=== PATIENT | female | born 1975 | race African-American/Black ===

== ENCOUNTER 2017-11-28 19:51 | Emergency (ER) | payer MEDICAID, OTHER ==
[~2017-11-28] VITALS: Ht 154.9 cm; Wt 75.0 kg
[~2017-11-28 19:51] MED LIST: BENZ100 PO; VENTAER INH
[2017-11-28 19:54] VITALS: BP 110/72; PULSE 78; RESP 16; TEMP 98.8; O2SAT 100
[2017-11-28] MEDS ORDERED: ONDANSETRON HCL 4 MG/2 ML VIAL IVP ONE (20:30)
[2017-11-28] MEDS ORDERED: SODIUM CHLORIDE 0.9% FLUSH 10 ML FLUSH IV FLUSH PRN (20:30)
[2017-11-28] MEDS ORDERED: MORPHINE SULFATE 4 MG/ML INJ IV PUSH ONE (20:30)
[2017-11-28 21:03] LABS: AUTOMATED NEUTROPHIL # 2.3 TH/MM3 (1.8-7.7); BASOPHIL # 0.1 TH/MM3 (0-0.2); EOSINOPHIL # 0.1 TH/MM3 (0-0.4); EOSINOPHIL % 2.6 % (0.0-4.0); HEMATOCRIT 34.5 % (35.0-46.0); HEMOGLOBIN 11.5 GM/DL (11.6-15.3); LYMPH % 41.9 % (9.0-44.0); LYMPHOCYTE # 2.2 TH/MM3 (1.0-4.8); MEAN CELL VOLUME 88.7 FL (80.0-100.0); MEAN CORPUSCULAR HEMOGLOBIN 29.5 PG (27.0-34.0); MEAN CORPUSCULAR HGB CONC 33.2 % (32.0-36.0); MEAN PLATELET VOLUME 7.6 FL (7.0-11.0); MONO % 10.6 % (0.0-8.0); MONOCYTE # 0.6 TH/MM3 (0-0.9); NEUT % 43.9 % (16.0-70.0); PLATELET COUNT 344 TH/MM3 (150-450); RED BLOOD COUNT 3.89 MIL/MM3 (4.00-5.30); RED CELL DISTRIBUTION WIDTH 14.2 % (11.6-17.2); WHITE BLOOD COUNT 5.2 TH/MM3 (4.0-11.0)
[2017-11-28 21:09] LABS: BILIRUBIN, URINE NEG (NEG); BLOOD, URINE SMALL (NEG); GLUCOSE,URINE NEG (NEG); KETONE, URINE NEG (NEG); MUCUS URINE FEW /lpf (OCC); NITRITE,URINE NEG (NEG); PH, URINE 6.5 (5.0-8.5); SQUAMOUS EPITHELIAL CELL URINE 1 /hpf (0-5); URINE COLOR YELLOW (YELLW/STRAW); URINE LEUKOCYTE ESTERASE SMALL (NEG)
[2017-11-28 21:16] LABS: ALBUMIN 3.1 GM/DL (3.4-5.0); AST (GOT) 11 U/L (15-37); BICARBONATE 27.1 MEQ/L (21.0-32.0); BLOOD UREA NITROGEN 9 MG/DL (7-18); CHLORIDE 104 MEQ/L (98-107); CREATININE 0.83 MG/DL (0.50-1.00); GAMMA GT 11 U/L (5-55); GLOMERULAR FILTRATION RATE 90 ML/MIN (>89); GLUCOSE,RANDOM 74 MG/DL (74-106); SODIUM (NA) 135 MEQ/L (136-145)
[2017-11-28 21:18] LABS: ALT (GPT) 14 U/L (10-53)
[2017-11-28 21:19] LABS: ALKALINE PHOSPHATASE 65 U/L (45-117); TOTAL BILIRUBIN ADULT 0.3 MG/DL (0.2-1.0); TOTAL PROTEIN 7.4 GM/DL (6.4-8.2)
[2017-11-28 21:21] LABS: INTERNATIONAL NORMALIZED RATIO 1.1 RATIO; PROTHROMBIN TIME - PATIENT 11.5 SEC (9.8-11.6)
--- NOTE | 2017-11-28 21:52 | PD ---
HPI Chief Complaint: Flank/Kidney Pain Time Seen by Provider: 20:12 Travel History International Travel<30 days: No Contact w/Intl Traveler<30days: No Traveled to known affect area: No History of Present Illness HPI Patient is a 42-year-old female presenting to the emergency department for evaluation of right flank and right upper quadrant abdominal pain. Patient states it started 1 week ago in her flank, over the last several days it has localized to her right upper quadrant. Alleviating factors include Tylenol with some relief of symptoms. There are no exacerbating factors including food intake. Septum onset was gradual. Patient denies any nausea, vomiting, fever, chills, change in bowel habits. Patient states her pain is an 8 out of 10 and states it's sore and shooting. PFSH Past Medical History GERD: Yes Hiatal Hernia: Yes Immunizations Current: Yes Tetanus Vaccination: < 5 Years Influenza Vaccination: No ?: Not LMP: 11/07/2017 : 3 Para: 2 : 1 Past Surgical History Section: Yes (X 1) Social History Alcohol Use: No Tobacco Use: No Substance Use: No Allergies-Medications (Allergen,Severity, Reaction): Coded Allergies: amoxicillin (Unverified Adverse Reaction, Severe, GI BLEED, 11/28/17) clavulanic acid (Unverified Adverse Reaction, Severe, GI BLEED, 11/28/17) Reported Meds & Prescriptions Reported Meds & Active Scripts Active Tessalon Perles (Benzonatate) 100 Mg Cap 200 Mg PO Q8HR PRN Ventolin Hfa 18 GM Inh (Albuterol Sulfate) 90 Mcg/Act Aer 2 Puff INH Q4-6H PRN Review of Systems Except as stated in HPI: all other systems reviewed are Neg General / Constitutional: No: Fever Cardiovascular: No: Chest Pain or Discomfort Respiratory: No: Shortness of Breath Gastrointestinal: Positive: Abdominal Pain, No: Nausea, Vomiting, Changes in Bowel Habits, Indigestion, Loss of Appetite Genitourinary: No: Frequency, Dysuria Physical Exam Narrative GENERAL: Well-developed, well-nourished, alert female. Appears uncomfortable, in no acute distress. SKIN: Warm and dry. HEAD: Atraumatic. Normocephalic. EYES: Pupils equal and round. No scleral icterus. No injection or drainage. ENT: No nasal bleeding or discharge. Mucous membranes pink and moist. NECK: Trachea midline. No JVD. CARDIOVASCULAR: Regular rate and rhythm. RESPIRATORY: No accessory muscle use. Clear to auscultation. Breath sounds equal bilaterally. GASTROINTESTINAL: Abdomen soft, tender to palpation in right upper quadrant, nondistended. Hepatic and splenic margins not palpable. Positive guarding, no rebound, positive bowel sounds. MUSCULOSKELETAL: Extremities without clubbing, cyanosis, or edema. No obvious deformities. NEUROLOGICAL: Awake and alert. No obvious cranial nerve deficits. Motor grossly within normal limits. Five out of 5 muscle strength in the arms and legs. Normal speech. PSYCHIATRIC: Appropriate mood and affect; insight and judgment normal. Data Data Last Documented VS Vital Signs Date Time Temp Pulse Resp B/P (MAP) Pulse Ox O2 Delivery O2 Flow Rate FiO2 11/28/17 19:54 98.8 78 16 110/72 (85) 100 Orders Orders Complete Blood Count With Diff (11/28/17 20:16) Comprehensive Metabolic Panel (11/28/17 20:16) Lipase (11/28/17 20:16) Prothrombin Time / Inr (Pt) (11/28/17 20:16) Act Partial Throm Time (Ptt) (11/28/17 20:16) Urinalysis - C+S If Indicated (11/28/17 20:16) Us Abdomen Gallbladder (11/28/17 ) Iv Access Insert/Monitor (11/28/17 20:16) Ecg Monitoring (11/28/17 20:16) Oximetry (11/28/17 20:16) NPO (11/28/17 20:16) Morphine Inj (Morphine Inj) (11/28/17 20:30) Ondansetron Inj (Zofran Inj) (11/28/17 20:30) Sodium Chloride 0.9% Flush (Ns Flush) (11/28/17 20:30) Gamma Gt (Ggt) (11/28/17 20:16) Urine Culture (11/28/17 20:40) Ciprofloxacin (Cipro) (11/28/17 23:15) Labs Laboratory Tests Test 11/28/17 20:40 White Blood Count 5.2 TH/MM3 Red Blood Count 3.89 MIL/MM3 Hemoglobin 11.5 GM/DL Hematocrit 34.5 % Mean Corpuscular Volume 88.7 FL Mean Corpuscular Hemoglobin 29.5 PG Mean Corpuscular Hemoglobin Concent 33.2 % Red Cell Distribution Width 14.2 % Platelet Count 344 TH/MM3 Mean Platelet Volume 7.6 FL Neutrophils (%) (Auto) 43.9 % Lymphocytes (%) (Auto) 41.9 % Monocytes (%) (Auto) 10.6 % Eosinophils (%) (Auto) 2.6 % Basophils (%) (Auto) 1.0 % Neutrophils # (Auto) 2.3 TH/MM3 Lymphocytes # (Auto) 2.2 TH/MM3 Monocytes # (Auto) 0.6 TH/MM3 Eosinophils # (Auto) 0.1 TH/MM3 Basophils # (Auto) 0.1 TH/MM3 CBC Comment DIFF FINAL Differential Comment Prothrombin Time 11.5 SEC Prothromb Time International Ratio 1.1 RATIO Activated Partial Thromboplast Time 24.2 SEC Urine Color YELLOW Urine Turbidity CLEAR Urine pH 6.5 Urine Specific [place] 1.033 Urine Protein 30 mg/dL Urine Glucose (UA) NEG mg/dL Urine Ketones NEG mg/dL Urine Occult Blood SMALL Urine Nitrite NEG Urine Bilirubin NEG Urine Urobilinogen 8.0 MG/DL Urine Leukocyte Esterase SMALL Urine RBC 6 /hpf Urine WBC 18 /hpf Urine Squamous Epithelial Cells 1 /hpf Urine Mucus FEW /lpf Microscopic Urinalysis Comment CULTURE INDICATED Blood Urea Nitrogen 9 MG/DL Creatinine 0.83 MG/DL Random Glucose 74 MG/DL Total Protein 7.4 GM/DL Albumin 3.1 GM/DL Calcium Level 8.0 MG/DL Alkaline Phosphatase 65 U/L Aspartate Amino Transf (AST/SGOT) 11 U/L Alanine Aminotransferase (ALT/SGPT) 14 U/L Gamma Glutamyl Transpeptidase 11 U/L Total Bilirubin 0.3 MG/DL Sodium Level 135 MEQ/L Potassium Level 3.3 MEQ/L Chloride Level 104 MEQ/L Carbon Dioxide Level 27.1 MEQ/L Anion Gap 4 MEQ/L Estimat Glomerular Filtration Rate 90 ML/MIN Lipase 221 U/L [facility] Medical Decision Making Medical Screen Exam Complete: Yes Emergency Medical Condition: Yes Interpretation(s) Laboratory Tests Test 11/28/17 20:40 White Blood Count 5.2 TH/MM3 Red Blood Count 3.89 MIL/MM3 Hemoglobin 11.5 GM/DL Hematocrit 34.5 % Mean Corpuscular Volume 88.7 FL Mean Corpuscular Hemoglobin 29.5 PG Mean Corpuscular Hemoglobin Concent 33.2 % Red Cell Distribution Width 14.2 % Platelet Count 344 TH/MM3 Mean Platelet Volume 7.6 FL Neutrophils (%) (Auto) 43.9 % Lymphocytes (%) (Auto) 41.9 % Monocytes (%) (Auto) 10.6 % Eosinophils (%) (Auto) 2.6 % Basophils (%) (Auto) 1.0 % Neutrophils # (Auto) 2.3 TH/MM3 Lymphocytes # (Auto) 2.2 TH/MM3 Monocytes # (Auto) 0.6 TH/MM3 Eosinophils # (Auto) 0.1 TH/MM3 Basophils # (Auto) 0.1 TH/MM3 CBC Comment DIFF FINAL Differential Comment Prothrombin Time 11.5 SEC Prothromb Time International Ratio 1.1 RATIO Activated Partial Thromboplast Time 24.2 SEC Urine Color YELLOW Urine Turbidity CLEAR Urine pH 6.5 Urine Specific [place] 1.033 Urine Protein 30 mg/dL Urine Glucose (UA) NEG mg/dL Urine Ketones NEG mg/dL Urine Occult Blood SMALL Urine Nitrite NEG Urine Bilirubin NEG Urine Urobilinogen 8.0 MG/DL Urine Leukocyte Esterase SMALL Urine RBC 6 /hpf Urine WBC 18 /hpf Urine Squamous Epithelial Cells 1 /hpf Urine Mucus FEW /lpf Microscopic Urinalysis Comment CULTURE INDICATED Blood Urea Nitrogen 9 MG/DL Creatinine 0.83 MG/DL Random Glucose 74 MG/DL Total Protein 7.4 GM/DL Albumin 3.1 GM/DL Calcium Level 8.0 MG/DL Alkaline Phosphatase 65 U/L Aspartate Amino Transf (AST/SGOT) 11 U/L Alanine Aminotransferase (ALT/SGPT) 14 U/L Gamma Glutamyl Transpeptidase 11 U/L Total Bilirubin 0.3 MG/DL Sodium Level 135 MEQ/L Potassium Level 3.3 MEQ/L Chloride Level 104 MEQ/L Carbon Dioxide Level 27.1 MEQ/L Anion Gap 4 MEQ/L Estimat Glomerular Filtration Rate 90 ML/MIN Lipase 221 U/L Laboratory Tests Test 11/28/17 20:40 White Blood Count 5.2 TH/MM3 Red Blood Count 3.89 MIL/MM3 Hemoglobin 11.5 GM/DL Hematocrit 34.5 % Mean Corpuscular Volume 88.7 FL Mean Corpuscular Hemoglobin 29.5 PG Mean Corpuscular Hemoglobin Concent 33.2 % Red Cell Distribution Width 14.2 % Platelet Count 344 TH/MM3 Mean Platelet Volume 7.6 FL Neutrophils (%) (Auto) 43.9 % Lymphocytes (%) (Auto) 41.9 % Monocytes (%) (Auto) 10.6 % Eosinophils (%) (Auto) 2.6 % Basophils (%) (Auto) 1.0 % Neutrophils # (Auto) 2.3 TH/MM3 Lymphocytes # (Auto) 2.2 TH/MM3 Monocytes # (Auto) 0.6 TH/MM3 Eosinophils # (Auto) 0.1 TH/MM3 Basophils # (Auto) 0.1 TH/MM3 CBC Comment DIFF FINAL Differential Comment Prothrombin Time 11.5 SEC Prothromb Time International Ratio 1.1 RATIO Activated Partial Thromboplast Time 24.2 SEC Urine Color YELLOW Urine Turbidity CLEAR Urine pH 6.5 Urine Specific [place] 1.033 Urine Protein 30 mg/dL Urine Glucose (UA) NEG mg/dL Urine Ketones NEG mg/dL Urine Occult Blood SMALL Urine Nitrite NEG Urine Bilirubin NEG Urine Urobilinogen 8.0 MG/DL Urine Leukocyte Esterase SMALL Urine RBC 6 /hpf Urine WBC 18 /hpf Urine Squamous Epithelial Cells 1 /hpf Urine Mucus FEW /lpf Microscopic Urinalysis Comment CULTURE INDICATED Blood Urea Nitrogen 9 MG/DL Creatinine 0.83 MG/DL Random Glucose 74 MG/DL Total Protein 7.4 GM/DL Albumin 3.1 GM/DL Calcium Level 8.0 MG/DL Alkaline Phosphatase 65 U/L Aspartate Amino Transf (AST/SGOT) 11 U/L Alanine Aminotransferase (ALT/SGPT) 14 U/L Gamma Glutamyl Transpeptidase 11 U/L Total Bilirubin 0.3 MG/DL Sodium Level 135 MEQ/L Potassium Level 3.3 MEQ/L Chloride Level 104 MEQ/L Carbon Dioxide Level 27.1 MEQ/L Anion Gap 4 MEQ/L Estimat Glomerular Filtration Rate 90 ML/MIN Lipase 221 U/L Vital Signs Date Time Temp Pulse Resp B/P (MAP) Pulse Ox O2 Delivery O2 Flow Rate FiO2 11/28/17 19:54 98.8 78 16 110/72 (85) 100 Differential Diagnosis Cholecystitis versus gastritis versus muscle strain versus UTI versus kidney stone versus other Narrative Course Patient is a 42-year-old female presenting for evaluation of right upper quadrant abdominal pain. Patient's vital signs are stable, labs and imaging ordered and pending. Ultrasound of the gallbladder shows no acute abnormality. CBC with no acute findings, lipase 221, 3 with a sodium 135, potassium 3.3, GGT 11, UA is consistent with a urinary tract infection. Pt's symptoms are likely related to beginning pyelonephritis. Patient will be given first dose of Cipro now. She'll be given additional prescription to complete full course of therapy at home. She is encouraged to increase oral fluid intake. She is encouraged follow-up with her primary doctor return to emergency department for any new or worsening symptoms. Patient verbalized understanding of these instructions. Patient is stable for discharge. Diagnosis Primary Impression: Pyelonephritis Referrals: Primary Care Physician Patient Instructions: Flank Pain (ED), General Instructions, Kidney Infection ( ED) Additional Instructions: Complete full course of antibiotics as prescribed Increase oral fluid intake Return to emergency department for any new or worsening symptoms Med/Other Pt SpecificInfo: Prescription(s) given Scripts Ciprofloxacin (Ciprofloxacin) 500 Mg Tab 500 MG PO BID for Infection for 5 Days, #10 TAB 0 Refills Prov: Geovanna Ford 11/28/17 Disposition: 01 DISCHARGE HOME Condition: Stable Geovanna Ford Nov 28, 2017 21:52
--- NOTE | 2017-11-28 23:00 | RADRPT ---
EXAM DATE/TIME: 11/28/2017 21:32 [facility] COMPARISON: No previous studies available for comparison. INDICATIONS : Right upper quadrant pain. MEDICAL HISTORY : Gastroesophageal reflux disease. . Hiatal hernia. SURGICAL HISTORY : section. ENCOUNTER: Initial ACUITY: 2 weeks PAIN SCORE: 5/10 LOCATION: Right upper quadrant MEASUREMENTS: LIVER: 14.4 cm length COMMON DUCT: 5 mm RIGHT KIDNEY: 9.4 x 5.1 x 4.3 cm FINDINGS: LIVER: Normal echotexture without focal lesion or ductal dilatation. COMMON DUCT: No intraluminal mass or stone visualized. GALLBLADDER: Contains no stones, demonstrates no wall thickening or pericholecystic fluid. PANCREAS: The visualized portions are within normal limits. RIGHT KIDNEY: No evidence of hydronephrosis, stone, or mass. CONCLUSION: Normal right upper quadrant ultrasound. Pablo Carey MD on November 28, 2017 at 22:53 Board Certified Radiologist. This report was verified electronically.
[2017-11-28] MEDS ORDERED: CIPR500T2 PO (23:08)
[2017-11-28] MEDS ORDERED: CIPROFLOXACIN 500 MG TAB PO ONE (23:15)
== END 2017-11-28 23:21 | disposition home or self-care (01) ==
LOC: NEPD 19:51
DX: N12 Tubulo-interstitial nephritis, not specified as acute or chronic (principal); K21.9 Gastro-esophageal reflux disease without esophagitis; Z88.0 Allergy status to penicillin; Z88.8 Allergy status to other drugs, medicaments and biological substances
CPT/HCPCS: 76705; 80053; 81001; 82977; 83690; 85025; 85610; 85730; 87086; 96374; 96375; 99284; J2270; J2405

== ENCOUNTER 2018-03-13 14:46 | Inpatient (IN) | payer MEDICAID ==
[~2018-03-13] VITALS: Ht 154.9 cm; Wt 81.0 kg
[~2018-03-13 14:46] MED LIST changes: +CIPR500T2 PO
[2018-03-13 14:55] VITALS: BP 123/83; PULSE 87; RESP 18; TEMP 98.9; O2SAT 100
[2018-03-13] MEDS ORDERED: SODIUM CHLOR 0.9% 1000 ML INJ 1,000 ML IV ONE (15:15)
[2018-03-13 16:25] VITALS: BP 110/75; PULSE 63; RESP 16; O2SAT 100
[2018-03-13 16:31] LABS: BASOPHIL % 0.9 % (0.0-2.0); EOSINOPHIL # 0.1 TH/MM3 (0-0.4); EOSINOPHIL % 3.3 % (0.0-4.0); HEMATOCRIT 38.1 % (35.0-46.0); HEMOGLOBIN 13.4 GM/DL (11.6-15.3); LYMPH % 41.1 % (9.0-44.0); LYMPHOCYTE # 1.8 TH/MM3 (1.0-4.8); MEAN CELL VOLUME 87.4 FL (80.0-100.0); MEAN CORPUSCULAR HEMOGLOBIN 30.7 PG (27.0-34.0); MEAN CORPUSCULAR HGB CONC 35.1 % (32.0-36.0); MEAN PLATELET VOLUME 8.4 FL (7.0-11.0); MONO % 9.1 % (0.0-8.0); MONOCYTE # 0.4 TH/MM3 (0-0.9); NEUT % 45.6 % (16.0-70.0); PLATELET COUNT 372 TH/MM3 (150-450); RED BLOOD COUNT 4.36 MIL/MM3 (4.00-5.30); RED CELL DISTRIBUTION WIDTH 14.8 % (11.6-17.2); WHITE BLOOD COUNT 4.4 TH/MM3 (4.0-11.0)
[2018-03-13 16:40] LABS: PROTHROMBIN TIME - PATIENT 10.6 SEC (9.8-11.6)
[2018-03-13 16:52] LABS: BILIRUBIN, URINE NEG (NEG); BLOOD, URINE SMALL (NEG); GLUCOSE,URINE NEG (NEG); KETONE, URINE NEG (NEG); MUCUS URINE FEW /lpf (OCC); NITRITE,URINE NEG (NEG); SQUAMOUS EPITHELIAL CELL URINE 6 /hpf (0-5); URINE COLOR YELLOW (YELLW/STRAW); URINE LEUKOCYTE ESTERASE NEG (NEG)
[2018-03-13 17:04] LABS: ALBUMIN 3.8 GM/DL (3.4-5.0); ALKALINE PHOSPHATASE 76 U/L (45-117); AST (GOT) 17 U/L (15-37); BLOOD UREA NITROGEN 8 MG/DL (7-18); CALCIUM 8.7 MG/DL (8.5-10.1); CREATININE 0.88 MG/DL (0.50-1.00); GLOMERULAR FILTRATION RATE 84 ML/MIN (>89); GLUCOSE,RANDOM 78 MG/DL (74-106); TOTAL PROTEIN 9.2 GM/DL (6.4-8.2)
[2018-03-13 17:05] LABS: ALT (GPT) 16 U/L (10-53); BICARBONATE 25.5 MEQ/L (21.0-32.0); CHLORIDE 106 MEQ/L (98-107); SODIUM (NA) 140 MEQ/L (136-145); TOTAL BILIRUBIN ADULT 0.4 MG/DL (0.2-1.0)
--- NOTE | 2018-03-13 17:16 | RADRPT ---
EXAM DATE/TIME: 03/13/2018 16:44 [facility] COMPARISON: CT BRAIN W/O CONTRAST, December 02, 2013, 1:30. INDICATIONS : Right hand numbness for two days. RADIATION DOSE: 56.35 CTDIvol (mGy) MEDICAL HISTORY : Gastroesophageal reflux disease. SURGICAL HISTORY : None. ENCOUNTER: Initial ACUITY: 1 day PAIN SCALE: 0/10 LOCATION: Bilateral head TECHNIQUE: Multiple contiguous axial images were obtained of the head. Using automated exposure control and adj ustment of the mA and/or kV according to patient size, radiation dose was kept as low as reasonably a chievable to obtain optimal diagnostic quality images. DICOM format image data is available electro nically for review and comparison. FINDINGS: CEREBRUM: 1.8 x 1.3 cm hypodensity in the right frontal high convexity subcortical white matter. The ventricles are normal for age. No evidence of midline shift, mass lesion, hemorrhage or acute infarction. No extra-axial fluid collections are seen. POSTERIOR FOSSA: The cerebellum and brainstem are intact. The 4th ventricle is midline. The cerebellopontine angle i s unremarkable. EXTRACRANIAL: The visualized portion of the orbits is intact. SKULL: The calvaria is intact. No evidence of skull fracture. CONCLUSION: 1. 1.8 x 1.3 cm hypodense region in the right frontal high convexity subcortical white matter without evidence for significant mass effect. Differential considerations include demyelinating process such as multiple sclerosis versus focal infarction or less likely mass. Nilton Dobbs MD on March 13, 2018 at 17:09 Board Certified Radiologist. This report was verified electronically.
--- NOTE | 2018-03-13 17:17 | RADRPT ---
EXAM DATE/TIME: 03/13/2018 16:44 [facility] COMPARISON: No previous studies available for comparison. INDICATIONS : Right hand numbness for two days. RADIATION DOSE: 17.34 CTDIvol (mGy) MEDICAL HISTORY : Gastroesophageal reflux disease. SURGICAL HISTORY : None. ENCOUNTER: Initial ACUITY: 1 day PAIN SCALE: 0/10 LOCATION: Bilateral neck TECHNIQUE: Volumetric scanning of the cervical spine was performed. Multiplanar reconstructions in the sagittal, coronal and oblique axial planes were performed. Using automated exposure control and adjustment o f the mA and/or kV according to patient size, radiation dose was kept as low as reasonably achievable to obtain optimal diagnostic quality images. DICOM format image data is available electronically f or review and comparison. FINDINGS: VERTEBRAE: Normal vertebral body height. ALIGNMENT: No evidence of subluxation. C2-C3: The bony spinal canal is normal in size. No evidence of disc bulge or herniation. The neural forami na are bilaterally patent. C3-C4: The bony spinal canal is normal in size. No evidence of disc bulge or herniation. The neural forami na are bilaterally patent. C4-C5: The bony spinal canal is normal in size. No evidence of disc bulge or herniation. The neural forami na are bilaterally patent. C5-C6: The bony spinal canal is normal in size. No evidence of disc bulge or herniation. The neural forami na are bilaterally patent. C6-C7: The bony spinal canal is normal in size. No evidence of disc bulge or herniation. The neural forami na are bilaterally patent. C7-T1: The bony spinal canal is normal in size. No evidence of disc bulge or herniation. The neural forami na are bilaterally patent. CONCLUSION: 1. Unremarkable CT examination of the cervical spine. Patent bony central canal and neural foramina. Nilton Dobbs MD on March 13, 2018 at 17:14 Board Certified Radiologist. This report was verified electronically.
--- NOTE | 2018-03-13 18:18 | PD ---
HPI Chief Complaint: Numbness/Tingling Time Seen by Provider: 15:06 Travel History International Travel<30 days: No Contact w/Intl Traveler<30days: No Traveled to known affect area: No History of Present Illness HPI Patient is a 42-year-old female who comes in complaining of paresthesias in her right arm and right leg. She says this started last night, but has gotten worse. He says it started in the tips of her fingers and then spread through her arm and then to her leg. She denies any weakness. She denies any headache or neck pain. She denies any injuries. She says this is never happened before. She has not taken anything for her symptoms. Severity is mild to moderate. PFSH Past Medical History GERD: Yes Hiatal Hernia: Yes Medical other: Yes (FIBROIDS) Immunizations Current: Yes Tetanus Vaccination: < 5 Years Influenza Vaccination: Yes ?: Not LMP: 01/25/18 : 3 Para: 2 : 1 Past Surgical History Section: Yes (X 1) Genitourinary Surgery: Yes () Social History Alcohol Use: No Tobacco Use: No Substance Use: No Allergies-Medications (Allergen,Severity, Reaction): Coded Allergies: amoxicillin (Unverified Adverse Reaction, Severe, GI BLEED, 03/13/18) clavulanic acid (Unverified Adverse Reaction, Severe, GI BLEED, 03/13/18) Reported Meds & Prescriptions Reported Meds & Active Scripts Active Ciprofloxacin (Ciprofloxacin HCl) 500 Mg Tab 500 Mg PO BID 5 Days Tessalon Perles (Benzonatate) 100 Mg Cap 200 Mg PO Q8HR PRN Ventolin Hfa 18 GM Inh (Albuterol Sulfate) 90 Mcg/Act Aer 2 Puff INH Q4-6H PRN Review of Systems Except as stated in HPI: all other systems reviewed are Neg General / Constitutional: No: Fever, Chills Eyes: No: Blurred Vision HENT: No: Headaches, Lightheadedness Cardiovascular: No: Chest Pain or Discomfort Respiratory: No: Shortness of Breath Gastrointestinal: No: Nausea, Vomiting Musculoskeletal: No: Pain Neurologic: Positive: Paresthesia Physical Exam Narrative GENERAL: Awake and alert, no acute distress. SKIN: Focused skin assessment warm/dry. No wounds or signs of infection. HEAD: Atraumatic. Normocephalic. EYES: Pupils equal and round and reactive. No scleral icterus. Extraocular movements intact. ENT: Mucous membranes pink and moist. NECK: Trachea midline. No JVD. CARDIOVASCULAR: Regular rate and rhythm. No murmur appreciated. RESPIRATORY: No accessory muscle use. Clear to auscultation. Breath sounds equal bilaterally. GASTROINTESTINAL: Abdomen soft, non-tender, nondistended. MUSCULOSKELETAL: No obvious deformities. No clubbing. No cyanosis. No edema. NEUROLOGICAL: Awake and alert. No obvious cranial nerve deficits. Motor grossly within normal limits. Normal speech. No evidence of decreased sensation. PSYCHIATRIC: Appropriate mood and affect; insight and judgment normal. Data Data Last Documented VS Vital Signs Date Time Temp Pulse Resp B/P (MAP) Pulse Ox O2 Delivery O2 Flow Rate FiO2 03/13/18 18:28 73 16 134/82 (99) 100 Room Air 03/13/18 14:[address] Brain W/O Iv Contrast(Rout) (03/13/18 ) Ct Cerv Spine W/O Contrast (03/13/18 ) Complete Blood Count With Diff (03/13/18 15:13) Comprehensive Metabolic Panel (03/13/18 15:13) Iv Access Insert/Monitor (03/13/18 15:13) Electrocardiogram (03/13/18 ) Act Partial Throm Time (Ptt) (03/13/18 15:13) Prothrombin Time / Inr (Pt) (03/13/18 15:13) Urinalysis - C+S If Indicated (03/13/18 15:13) Ed Urine Pregnancytest Poc (03/13/18 15:13) Sodium Chlor 0.9% 1000 Ml Inj (Ns 1000 M (03/13/18 15:15) Mri Brain W&W/O Contrast (03/13/18 ) Admit Order (Ed Use Only) (03/13/18 ) Labs Laboratory Tests Test 03/13/18 15:45 03/13/18 16:00 White Blood Count 4.4 TH/MM3 Red Blood Count 4.36 MIL/MM3 Hemoglobin 13.4 GM/DL Hematocrit 38.1 % Mean Corpuscular Volume 87.4 FL Mean Corpuscular Hemoglobin 30.7 PG Mean Corpuscular Hemoglobin Concent 35.1 % Red Cell Distribution Width 14.8 % Platelet Count 372 TH/MM3 Mean Platelet Volume 8.4 FL Neutrophils (%) (Auto) 45.6 % Lymphocytes (%) (Auto) 41.1 % Monocytes (%) (Auto) 9.1 % Eosinophils (%) (Auto) 3.3 % Basophils (%) (Auto) 0.9 % Neutrophils # (Auto) 2.0 TH/MM3 Lymphocytes # (Auto) 1.8 TH/MM3 Monocytes # (Auto) 0.4 TH/MM3 Eosinophils # (Auto) 0.1 TH/MM3 Basophils # (Auto) 0.0 TH/MM3 CBC Comment DIFF FINAL Differential Comment Prothrombin Time 10.6 SEC Prothromb Time International Ratio 1.0 RATIO Activated Partial Thromboplast Time 25.0 SEC Blood Urea Nitrogen 8 MG/DL Creatinine 0.88 MG/DL Random Glucose 78 MG/DL Total Protein 9.2 GM/DL Albumin 3.8 GM/DL Calcium Level 8.7 MG/DL Alkaline Phosphatase 76 U/L Aspartate Amino Transf (AST/SGOT) 17 U/L Alanine Aminotransferase (ALT/SGPT) 16 U/L Total Bilirubin 0.4 MG/DL Sodium Level 140 MEQ/L Potassium Level 3.6 MEQ/L Chloride Level 106 MEQ/L Carbon Dioxide Level 25.5 MEQ/L Anion Gap 9 MEQ/L Estimat Glomerular Filtration Rate 84 ML/MIN Urine Color YELLOW Urine Turbidity CLEAR Urine pH 6.0 Urine Specific [place] 1.020 Urine Protein NEG mg/dL Urine Glucose (UA) NEG mg/dL Urine Ketones NEG mg/dL Urine Occult Blood SMALL Urine Nitrite NEG Urine Bilirubin NEG Urine Urobilinogen 2.0 MG/DL Urine Leukocyte Esterase NEG Urine RBC 3 /hpf Urine WBC 6 /hpf Urine Squamous Epithelial Cells 6 /hpf Urine Mucus FEW /lpf Microscopic Urinalysis Comment CULT NOT INDICATED MDM Medical Decision Making Medical Screen Exam Complete: Yes Emergency Medical Condition: Yes Medical Record Reviewed: Yes Interpretation(s) ECG shows normal sinus rhythm at a rate of 65, no ST elevation or depression, normal intervals Differential Diagnosis Radiculopathy versus TIA versus stroke versus electrolyte abnormality Narrative Course Patient is a 42-year-old female who comes in complaining of paresthesias in her right arm and right leg. Exam shows no neurologic abnormalities, sensation is intact. IV established, labs sent. Labs show no acute abnormalities. CT head performed shows a hypodense lesion concerning for mass versus MS versus stroke. Last [address] 03/13/18 0000 Signed Impressions: Service Date/Time: Tuesday, March 13, 2018 16:44 - CONCLUSION: 1. 1.8 x 1.3 cm hypodense region in the right frontal high convexity subcortical white matter without evidence for significant mass effect. Differential considerations include demyelinating process such as multiple sclerosis versus focal infarction or less likely mass. Nilton Dobbs MD Cervical Spine CT 03/13/18 0000 Signed Impressions: Service Date/Time: Tuesday, March 13, 2018 16:44 - CONCLUSION: 1. Unremarkable CT examination of the cervical spine. Patent bony central canal and neural foramina. Nilton Dobbs MD I spoke with Dr. Alatorre of neurology who suggested admission with MRI of the brain to further characterize this lesion. He advised holding off on any antiplatelets in case she needs an LP. Patient admitted for further management. Diagnosis Primary Impression: Neurologic abnormality Admitting Information Admitting Physician Requests: Admit Victoria Castillo MD March 13, 2018 18:18
[2018-03-13 18:28] VITALS: BP 134/82; PULSE 73; RESP 16; O2SAT 100
--- NOTE | 2018-03-13 19:05 | HHI.HP ---
HPI Service [facility] Primary Care Physician No Primary Care Physician Admission Diagnosis intracranial lesion Diagnoses: (1) Brain lesion Diagnosis: Principal Travel History International Travel<30 Days: No Contact w/Intl Traveler <30 Da: No Traveled to Known Affected Are: No History of Present Illness This is a 38-year-old female with no significant PMH who presented to the ER with complaints of right arm and right leg numbness and tingling starting last night. States she noted numbness/tingling in her fingers of her right hand last night, today progressed to numbness/tingling of entire arm and RLE. No motor weakness, no slurred speech, no facial droop. Denies h/o similar symptoms. On arrival, BP 123/83, HR 87, O2 sat 100% on RA, Afebrile. CBC unremarkable. Chemistry unremarkable. INR 1.0. UA negative for UTI. CT Head with 1.8 x 1.3 cm hypodense region right frontal subcortical white matter, no mass-effect, possible MS versus infarct or mass. Dr. Alatorre consulted, plan for MRI w/ possible LP depending on results. Pt w/ no other complaints at this time. Review of Systems Except as stated in HPI: all other systems reviewed are Neg ROS: 14 point review of systems otherwise negative. Past Family Social History Past Medical History PMH: None Past Surgical History PAST SURGICAL HISTORY: Allergies: Coded Allergies: amoxicillin (Unverified Adverse Reaction, Severe, GI BLEED, 03/13/18) clavulanic acid (Unverified Adverse Reaction, Severe, GI BLEED, 03/13/18) Family History PAST FAMILY HISTORY: Reviewed. No h/o DM or CAD Social History PAST SOCIAL HISTORY: Negative for alcohol, tobacco or drugs. Physical Exam Vital Signs Vital Signs Date Time Temp Pulse Resp B/P (MAP) Pulse Ox O2 Delivery O2 Flow Rate FiO2 03/13/18 18:28 73 16 134/82 (99) 100 Room Air 03/13/18 16:25 63 16 110/75 (87) 100 Room Air 03/13/18 15:16 18 Room Air 03/13/18 14:55 98.9 87 18 123/83 96 100 Physical Exam PE: GENERAL: Pleasant young white female in no acute distress. HEENT: PERRLA, EOMI. No scleral icterus or conjunctival pallor. No lid lag or facial droop. CARDIOVASCULAR: Regular rate and rhythm. No obvious murmurs to auscultation. No chest tenderness to palpation. RESPIRATORY: No obvious rhonchi or wheezing. Clear to auscultation. Breath sounds equal bilaterally. GASTROINTESTINAL: Abdomen soft, non-tender, nondistended. BS normal. MUSCULOSKELETAL: Extremities without clubbing, cyanosis, or edema. No obvious deformities. NEUROLOGICAL: Awake, alert and oriented x4. RUE/RLE numbness/tingling, no motor weakness. Moving both upper and lower extremities spontaneously. Laboratory Laboratory Tests Test 03/13/18 15:45 03/13/18 16:00 White Blood Count 4.4 Red Blood Count 4.36 Hemoglobin 13.4 Hematocrit 38.1 Mean Corpuscular Volume 87.4 Mean Corpuscular Hemoglobin 30.7 Mean Corpuscular Hemoglobin Concent 35.1 Red Cell Distribution Width 14.8 Platelet Count 372 Mean Platelet Volume 8.4 Neutrophils (%) (Auto) 45.6 Lymphocytes (%) (Auto) 41.1 Monocytes (%) (Auto) 9.1 Eosinophils (%) (Auto) 3.3 Basophils (%) (Auto) 0.9 Neutrophils # (Auto) 2.0 Lymphocytes # (Auto) 1.8 Monocytes # (Auto) 0.4 Eosinophils # (Auto) 0.1 Basophils # (Auto) 0.0 CBC Comment DIFF FINAL Differential Comment Prothrombin Time 10.6 Prothromb Time International Ratio 1.0 Activated Partial Thromboplast Time 25.0 Blood Urea Nitrogen 8 Creatinine 0.88 Random Glucose 78 Total Protein 9.2 Albumin 3.8 Calcium Level 8.7 Alkaline Phosphatase 76 Aspartate Amino Transf (AST/SGOT) 17 Alanine Aminotransferase (ALT/SGPT) 16 Total Bilirubin 0.4 Sodium Level 140 Potassium Level 3.6 Chloride Level 106 Carbon Dioxide Level 25.5 Anion Gap 9 Estimat Glomerular Filtration Rate 84 Urine Color YELLOW Urine Turbidity CLEAR Urine pH 6.0 Urine Specific Freeborn 1.020 Urine Protein NEG Urine Glucose (UA) NEG Urine Ketones NEG Urine Occult Blood SMALL Urine Nitrite NEG Urine Bilirubin NEG Urine Urobilinogen 2.0 Urine Leukocyte Esterase NEG Urine RBC 3 Urine WBC 6 Urine Squamous Epithelial Cells 6 Urine Mucus FEW Microscopic Urinalysis Comment CULT NOT INDICATED Result Diagram: 03/13/18 1545 03/13/18 1545 Caprini VTE Risk Assessment Caprini VTE Risk Assessment: No/Low Risk (score <= 1) Caprini Risk Assessment Model Point Value = 1 Point Value = 2 Point Value = 3 Point Value = 5 Age 41-60 Minor surgery BMI > 25 kg/m2 Swollen legs Varicose veins or History of unexplained or recurrent spontaneous Oral contraceptives or hormone replacement Sepsis (< 1 month) Serious lung disease, including pneumonia (< 1 month) Abnormal pulmonary function Acute myocardial infarction Congestive heart failure (< 1 month) History of inflammatory bowel disease Medical patient at bed rest Age 61-74 Arthroscopic surgery Major open surgery (> 45 min) Laparoscopic surgery (> 45 min) Malignancy Confined to bed (> 72 hours) Immobilizing plaster cast Central venous access Age >= 75 History of VTE Family history of VTE Factor V Leiden Prothrombin [id number] Lupus anticoagulant Anticardiolipin antibodies Elevated serum homocysteine Heparin-induced thrombocytopenia Other congenital or acquired thrombophilia Stroke (< 1 month) Elective arthroplasty Hip, pelvis, or leg fracture Acute spinal cord injury (< 1 month) Prophylaxis Regimen Total Risk Factor Score Risk Level Prophylaxis Regimen 0-1 Low Early ambulation 2 Moderate Order ONE of the following: *Sequential Compression Device (SCD) *Heparin 5000 units SQ BID 3-4 Higher Order ONE of the following medications: *Heparin 5000 units SQ TID *Enoxaparin/Lovenox 40 mg SQ daily (WT < 150 kg, CrCl > 30 mL/min) *Enoxaparin/Lovenox 30 mg SQ daily (WT < 150 kg, CrCl > 10-29 mL/min) *Enoxaparin/Lovenox 30 mg SQ BID (WT < 150 kg, CrCl > 30 mL/min) AND/OR *Sequential Compression Device (SCD) 5 or more Highest Order ONE of the following medications: *Heparin 5000 units SQ TID (Preferred with Epidurals) *Enoxaparin/Lovenox 40 mg SQ daily (WT < 150 kg, CrCl > 30 mL/min) *Enoxaparin/Lovenox 30 mg SQ daily (WT < 150 kg, CrCl > 10-29 mL/min) *Enoxaparin/Lovenox 30 mg SQ BID (WT < 150 kg, CrCl > 30 mL/min) AND *Sequential Compression Device (SCD) Assessment and Plan Problem List: (1) Brain lesion ICD Code: G93.9 - Disorder of brain, unspecified Assessment and Plan A/P: 1. Brain Lesion: acute onset of RUE/RLE numbness/tingling x1 day, no slurred speech, weakness or facial droop. CT Head w/ 1.8 x 1.3 cm right frontal subcortical lesion, possibly MS versus stroke versus mass, images reviewed by me. Dr. Alatorre consulted, recommendation for MRI Brain to further evaluated, currently pending. Hold ASA/Heparin for possible LP depending on MRI results. Neuro Checks. PT for eval/tx. 2. DVT Prophylaxis: SCD/Teds 3. Social work for d/c planning as needed. 4. Case discussed w/ ER physician at length, labs/records/imaging reviewed by me. Physician Certification 2 Midnight Certification Type: Admission for Inpatient Services Order for Inpatient Services The services are ordered in accordance with Medicare regulations or non- Medicare payer requirements, as applicable. In the case of services not specified as inpatient-only, they are appropriately provided as inpatient services in accordance with the 2-midnight benchmark. Estimated LOS (days): 2 days is the estimated time the patient will need to remain in the hospital, assuming treatment plan goals are met and no additional complications. Post-Hospital Plan: Not yet determined Kristal Juarez MD March 13, 2018 19:05
[2018-03-13] MEDS ORDERED: LACTULOSE SYRUP 20 GM/30 ML CUP PO PRN (19:15)
[2018-03-13] MEDS ORDERED: SENNOSIDES 8.6 MG TAB PO PRN (19:15)
[2018-03-13] MEDS ORDERED: ACETAMINOPHEN 325 MG TAB PO PRN (19:15)
[2018-03-13] MEDS ORDERED: SODIUM CHLORIDE 0.9% FLUSH 10 ML FLUSH IV FLUSH PRN (19:15)
[2018-03-13] MEDS ORDERED: BISACODYL 10 MG SUPP RECTAL PRN (19:15)
[2018-03-13] MEDS ORDERED: MAGNESIUM HYDROXIDE SUSP 30 ML CUP PO PRN (19:15)
[2018-03-13] MEDS ORDERED: GADODIAMIDE PF 287 MG/ML 5 ML VIAL (for RAD MRI) IVCONTRAST ONE (20:02)
--- NOTE | 2018-03-13 20:45 | RADRPT ---
EXAM DATE/TIME: 03/13/2018 19:49 [facility] COMPARISON: No previous studies available for comparison. INDICATIONS : Right sided weakness. Abnormal CT. CONTRAST: 14 cc Omniscan (gadodiamide) IV MEDICAL HISTORY : None. SURGICAL HISTORY : section. ENCOUNTER: Initial ACUITY: 1 day PAIN SCORE: 0/10 LOCATION: cranial TECHNIQUE: Multiplanar, multisequence MRI of the brain was performed both prior to and following the administrat ion of paramagnetic contrast. FINDINGS: CEREBRUM: There is a 1.4 cm peripherally enhancing mass in the subcortical right parietal high convexities with associated mild surrounding vasogenic edema. Second more subtle inferior Satellite lesion with enhan cement measuring 7 mm and associated edema is noted in the right posterior periventricular white manda er. The dominant mass demonstrates restricted diffusion peripherally. The smaller lesion does not dem onstrate diffusion abnormality. The ventricles are normal for age. No evidence of midline shift, mas s lesion, hemorrhage or acute infarction. No extraaxial fluid collections are seen. The pituitary g land and suprasellar cistern are normal in configuration. WHITE MATTER: No significant signal abnormalities are seen in the white matter. POSTERIOR FOSSA: The cerebellum and brainstem are intact. The 4th ventricle is midline. The cerebellopontine angle is unremarkable. The cerebellar tonsils are normal in position. DIFFUSION IMAGING: No additional focal areas of restricted diffusion are seen. No evidence of acute infarction. EXTRACRANIAL: The visualized portions of the orbits and paranasal sinuses are unremarkable. POST-CONTRAST: No additional abnormal areas of parenchymal or dural enhancement. No evidence of blood-brain barrier breakdown. CONCLUSION: 1. Abnormality on CT corresponds to a 1.4 cm peripherally enhancing mass in the subcortical biparieta l high convexities with associated surrounding vasogenic edema and second more subtle inferior Satell ite lesion measuring 7 mm. Differential considerations include tumefactive MS versus primary or metas tatic malignancy. Clinical correlation is recommended. MR spectroscopy may be performed if there is c ontinued clinical uncertainty. Nilton Dobbs MD on March 13, 2018 at 20:37 Board Certified Radiologist. This report was verified electronically.
[2018-03-13 21:00] VITALS: BP 124/75; PULSE 64; RESP 18; TEMP 98; O2SAT 99
[2018-03-13] MEDS: DOCUSATE SODIUM 50 MG/SENNA 8.6 MG TAB PO SCH (21:00)
--- NOTE | 2018-03-13 22:46 | EKG ---
Date Performed: 03/13/2018 Time Performed: 16:00:28 PTAGE: 42 years EKG: Sinus rhythm NORMAL ECG PREVIOUS TRACING : 08/13/2016 22.26 No significant change from previous tracing noted. DOCTOR: Ahmet Salazar Interpretating Date/Time 03/13/2018 22:44:28
[2018-03-13] MEDS: SODIUM CHLOR 0.9% 1000 ML INJ 1,000 ML IV SCH (23:09)
[2018-03-13] MEDS: SODIUM CHLORIDE 0.9% FLUSH 10 ML FLUSH IV FLUSH SCH (23:10)
[2018-03-14] VITALS (8 sets, daily range): BP systolic 97–128; BP diastolic 53–77; PULSE 61–77; RESP 18–20; TEMP 97.5–98.2; O2SAT 98–100
[2018-03-14] MEDS: ACETAMINOPHEN/HYDROcodone 325 MG/5 MG TAB PO PRN ×3 (01:02→21:05)
[2018-03-14] MEDS: DOCUSATE SODIUM 50 MG/SENNA 8.6 MG TAB PO SCH ×2 (08:03→21:05)
[2018-03-14] MEDS: SODIUM CHLORIDE 0.9% FLUSH 10 ML FLUSH IV FLUSH SCH ×2 (08:03→21:00)
[2018-03-14 08:36] LABS: AUTOMATED NEUTROPHIL # 1.8 TH/MM3 (1.8-7.7); BASOPHIL # 0.1 TH/MM3 (0-0.2); EOSINOPHIL # 0.2 TH/MM3 (0-0.4); HEMATOCRIT 32.7 % (35.0-46.0); HEMOGLOBIN 10.8 GM/DL (11.6-15.3); LYMPH % 43.2 % (9.0-44.0); LYMPHOCYTE # 1.7 TH/MM3 (1.0-4.8); MEAN CELL VOLUME 87.8 FL (80.0-100.0); MEAN CORPUSCULAR HEMOGLOBIN 28.9 PG (27.0-34.0); MEAN CORPUSCULAR HGB CONC 32.9 % (32.0-36.0); MEAN PLATELET VOLUME 8.3 FL (7.0-11.0); MONO % 5.1 % (0.0-8.0); MONOCYTE # 0.2 TH/MM3 (0-0.9); NEUT % 45.7 % (16.0-70.0); PLATELET COUNT 334 TH/MM3 (150-450); RED BLOOD COUNT 3.73 MIL/MM3 (4.00-5.30); RED CELL DISTRIBUTION WIDTH 14.5 % (11.6-17.2)
[2018-03-14 08:57] LABS: ALBUMIN 2.8 GM/DL (3.4-5.0); ALKALINE PHOSPHATASE 55 U/L (45-117); ALT (GPT) 12 U/L (10-53); AST (GOT) 14 U/L (15-37); BICARBONATE 23.2 MEQ/L (21.0-32.0); BLOOD UREA NITROGEN 6 MG/DL (7-18); CALCIUM 7.7 MG/DL (8.5-10.1); CHLORIDE 111 MEQ/L (98-107); CREATININE 0.62 MG/DL (0.50-1.00); GLOMERULAR FILTRATION RATE 127 ML/MIN (>89); GLUCOSE,RANDOM 86 MG/DL (74-106); SODIUM (NA) 141 MEQ/L (136-145); TOTAL BILIRUBIN ADULT 0.3 MG/DL (0.2-1.0); TOTAL PROTEIN 6.6 GM/DL (6.4-8.2)
[2018-03-14] MEDS: SODIUM CHLOR 0.9% 1000 ML INJ 1,000 ML IV SCH ×2 (10:07→15:01)
[2018-03-14] MEDS ORDERED: DIATRIZOATE MEGLUM/DIATRIZOATE SOD 9 ML CUP PO ONE (12:15)
--- NOTE | 2018-03-14 12:23 | HHI.PR ---
Subjective Remarks Reports that she is having still some numbness in the right upper and lower extremities. No weakness is able to still ambulate. No headaches no visual changes no difficulty with swallowing Objective Vitals Vital Signs Date Time Temp Pulse Resp B/P (MAP) Pulse Ox O2 Delivery O2 Flow Rate FiO2 03/14/18 12:00 97.8 77 20 119/71 (87) 100 03/14/18 08:05 63 03/14/18 08:00 98.2 62 20 105/71 (82) 99 03/14/18 04:00 97.9 61 18 97/59 (72) 98 03/14/18 00:00 97.9 67 19 106/56 (73) 98 03/13/18 21:00 98.0 64 18 124/75 (91) 99 03/13/18 20:47 03/13/18 18:28 73 16 134/82 (99) 100 Room Air 03/13/18 16:25 63 16 110/75 (87) 100 Room Air 03/13/18 15:16 18 Room Air 03/13/18 14:55 98.9 87 18 123/83 (96) 100 I/O 03/13/18 03/13/18 03/13/18 03/14/18 03/14/18 03/14/18 07:00 15:00 23:00 07:00 15:00 23:00 Intake Total 1000 ml Balance 1000 ml Intake IV Total 1000 ml Result Diagram: 03/14/1872503/14/18 07 Objective Remarks GENERAL: This is a well-nourished, well-developed patient, in no apparent distress. CARDIOVASCULAR: Regular rate and rhythm RESPIRATORY: Clear to auscultation. Breath sounds equal bilaterally. No wheezes , rales, or rhonchi. GASTROINTESTINAL: Abdomen soft, non-tender, nondistended. Normal active bowel sounds MUSCULOSKELETAL: Extremities without clubbing, cyanosis, or edema. NEURO: Alert & Oriented x4 to person, place, time, situation. Moves all ext x4 A/P Problem List: (1) Brain lesion ICD Code: G93.9 - Disorder of brain, unspecified Status: Acute Assessment and Plan 1. Brain Lesion: per history acute onset of RUE/RLE numbness/tingling x1 day, no slurred speech, weakness or facial droop. CT Head w/ 1.8 x 1.3 cm right frontal subcortical lesion, possibly MS versus stroke versus mass. appreciate neurology recommendations for further evaluation. Dr. Zamarripa has order MRI of the cervical, thoracic and L-spine, further lab work currently pending along a with a neurosurgical evaluation for biopsy of the lesion. Hold ASA/Heparin for possible LP depending on MRI results. Neuro Checks are stable PT for evaluation and treatment 2. DVT Prophylaxis: SCD/Teds Discharge Planning home when stable Cecy Orourke MD March 14, 2018 12:23
--- NOTE | 2018-03-14 12:34 | MB ---
cc: Lloyd Zamarripa MD DATE: 03/14/2018 REASON FOR CONSULTATION: A 42-year-old left-handed woman with really no past medical history. She has occasional headaches on and off. Wednesday, which was 2 days ago, she noticed some tingling in her right fingers, which seemed to slowly traveled up her right arm and down her right leg and on the right side of her neck, not onto her face, a little bit of blurriness in the right vision. She came into the ER, which showed a hypodensity in the right frontal head region, which would be the side opposite we would think and then an MRI has shown a round almost cystic-appearing lesion with some ring enhancement and some edema in the white matter around that and also a smaller more diffusely enhancing round lesion, right next to that. Nothing to suggest MS on the MRI. There is a small white matter change on the left side of the brain. She denies any recent travel or communication with anybody who has traveled outside the [facility]. She has not gone to [place] or the [facility] or anywhere outside the [facility]. She has occasional headaches, but nothing new. No fevers or other illness or diarrhea. SOCIAL HISTORY: She is not a smoker or a drinker. No drugs. Lives by herself. FAMILY HISTORY: Positive for cancer in father. Negative for seizure or stroke. REVIEW OF SYSTEMS: Denies any fever. Denies any hypertension, diabetes, hypercholesterolemia, SD, CABG, cardiac arrhythmia, renal, hepatic, pulmonary disease, thyroid disease, lupus, ulcer, cancer, seizure or stroke. MEDICATIONS: None at home. PHYSICAL EXAMINATION: VITAL SIGNS: Afebrile, 62, 20, 105/71. NECK: There were no carotid bruits. HEART: Regular rhythm. I did not detect a murmur. NEUROLOGIC: Pupils are equal. Visual segundo are full. Extraocular movements intact without nystagmus. She is a little bit blurry in her vision right eye compared to the left, but really does not see well to a distance with either eye because she does not have her glasses with her. Face is symmetric with normal sensation. Tongue was midline. There is no drift. She had normal strength in her upper and lower extremities bilaterally. DTRs are 1+ throughout. Toes are downgoing bilaterally. There is no ankle clonus. Tone is normal throughout. Pinprick is intact throughout. She is not ataxic on [id number]. Speech is fluent. She is not aphasic. She tells me her gait has been fine. LABORATORY DATA: CBC is normal. Urine drug screen negative. UA negative. Basic metabolic profile, LFTs normal, albumin was normal. Coags normal. MRI is noted. Cervical spine CT was read as normal. IMPRESSION: Unusual that her symptoms are on the right side of her body would correspond more to the left side of her brain or she could have a spinal cord lesion as the face was not involved with the tingling, so we are going to go ahead and check an MRI of the cervical and thoracic spine. The abnormalities in the right brain, I am not sure exactly what they are. They could be a small abscess, a glioma could be considered, a cyst-like structure such as cysticercosis could be considered. We will have neurosurgery see her. Atypical MS could be considered, but certainly does not look classic for MS. Although similar findings can be seen in tumefactive MS. We will check some blood work on her also. I will be following her with you in the hospital, although clinically she looks fine at this time. I also will check a CT of her chest and abdomen. An unusual appearing met could also be considered such as ovarian or other type of cancer type met. MD ARANZA Khan/WALESKA , 11:30 AM , 12:34 PM
[2018-03-14 12:50] LABS: C-REACTIVE PROTEIN LESS THAN 0.29 MG/DL (0.00-0.30)
[2018-03-14 13:15] LABS: FREE T4 0.96 NG/DL (0.76-1.46)
[2018-03-14] MEDS ORDERED: GADODIAMIDE PF 287 MG/ML 10 ML VIAL (for RAD MRI) IV PUSH ONE (15:10)
--- NOTE | 2018-03-14 16:48 | RADRPT ---
EXAM DATE/TIME: 03/14/2018 13:20 [facility] COMPARISON: No previous studies available for comparison. INDICATIONS : Mulitple sclerosis. CONTRAST: 13 cc Omniscan (gadodiamide) IV MEDICAL HISTORY : None. SURGICAL HISTORY : section. ENCOUNTER: Initial ACUITY: 1 day PAIN SCORE: 2/10 LOCATION: Right mid back TECHNIQUE: Multiplanar multisequence MRI of the thoracic spine was performed. FINDINGS: VERTEBRA: Normal vertebral body height. Homogeneous marrow signal. ALIGNMENT: Normal. CORD: Faint increased T2 and inversion recovery signal intensity posterior to the T4-5 disc interspace and T7 vertebral body. POST CONTRAST: No abnormal areas of contrast enhancement seen. T1-T2: Normal. T2-T3: The thecal sac has a normal diameter. No evidence of disc bulge or protrusion. T3-T4: The thecal sac has a normal diameter. No evidence of disc bulge or protrusion. T4-T5: The thecal sac has a normal diameter. No evidence of disc bulge or protrusion. T5-T6: The thecal sac has a normal diameter. No evidence of disc bulge or protrusion. T6-T7: The thecal sac has a normal diameter. No evidence of disc bulge or protrusion. T7-T8: The thecal sac has a normal diameter. No evidence of disc bulge or protrusion. T8-T9: The thecal sac has a normal diameter. No evidence of disc bulge or protrusion. T9-T10: The thecal sac has a normal diameter. No evidence of disc bulge or protrusion. T10-T11: The thecal sac has a normal diameter. No evidence of disc bulge or protrusion. T11-T12: The thecal sac has a normal diameter. No evidence of disc bulge or protrusion. T12-L1: The thecal sac has a normal diameter. No evidence of disc bulge or protrusion. CONCLUSION: 1. Faint increased T2 and inversion recovery signal posterior to the T4-5 disc interspace and T7 vert ebral bodies possibly representing old demyelinating plaques. 2. Otherwise, no active disease. No abnormal enhancement. Spinal canal is patent throughout Duong Cope MD on March 14, 2018 at 16:41 Board Certified Radiologist. This report was verified electronically.
--- NOTE | 2018-03-14 16:54 | RADRPT ---
EXAM DATE/TIME: 03/14/2018 13:20 [facility] COMPARISON: No previous studies available for comparison. INDICATIONS : Mulitple sclerosis. CONTRAST: 13 cc Omniscan (gadodiamide) IV MEDICAL HISTORY : None. SURGICAL HISTORY : section. ENCOUNTER: Initial ACUITY: 1 day PAIN SCORE: 2/10 LOCATION: Right neck region. TECHNIQUE: Multiplanar, multisequence MRI examination of the cervical spine was performed. FINDINGS: VERTEBRAE: Normal vertebral body height. Homogeneous marrow signal. ALIGNMENT: No evidence of subluxation. CORD: Increased T2 and inversion recovery signal posterior to the C4-5 disc interspace. POST FOSSA: The cerebellar tonsils are normal in position. POST-CONTRAST: Area of abnormal T2 signal posterior to the C4-5 disc interspace does show some enhancement following gadolinium administration. C2-C3: The thecal sac has a normal configuration. There is no evidence of disc herniation or spinal canal stenosis. The neural foramina are patent bilaterally. C3-C4: Faint area of increased gradient echo and T2 signal in intensity posteriorly in the right side of the cord. No abnormal enhancement. Spinal canal and neural foramina are patent. C4-C5: Central area of increased T2 and gradient echo signal centrally in the cord at this level which does show some enhancement. Spinal canal and neural foramina are patent. C5-C6: The thecal sac has a normal configuration. There is no evidence of disc herniation or spinal canal s tenosis. The neural foramina are patent bilaterally. C6-C7: The thecal sac has a normal configuration. There is no evidence of disc herniation or spinal canal s tenosis. The neural foramina are patent bilaterally. C7-T1: The thecal sac has a normal configuration. There is no evidence of disc herniation or spinal canal s tenosis. The neural foramina are patent bilaterally. CONCLUSION: 1. Old demyelinating plaque posteriorly in the right side of the cord at C3-4. 2. Active demyelinating plaque centrally in the cord at C4-5. 3. Spinal canal and neural foramina are patent throughout without cord or nerve root compromise Duong Cope MD on March 14, 2018 at 16:47 Board Certified Radiologist. This report was verified electronically.
--- NOTE | 2018-03-14 16:54 | RADRPT ---
EXAM DATE/TIME: 03/14/2018 13:20 [facility] COMPARISON: No previous studies available for comparison. INDICATIONS : Radiculopathy. MEDICAL HISTORY : None. SURGICAL HISTORY : section. ENCOUNTER: Initial ACUITY: 2 day PAIN SCORE: 0/10 LOCATION: lspine TECHNIQUE: Multiplanar multisequence MRI of the lumbar spine was performed without contrast. FINDINGS: The most caudal appearing lumbar vertebra is numbered as L5. VERTEBRAE: Homogeneous signal. Normal alignment. CONUS: Normal level and configuration. T12-L1: The thecal sac has a normal diameter. No evidence of disc bulge or protrusion. The neural foramina are patent bilaterally. L1-L2: The thecal sac has a normal diameter. No evidence of disc bulge or protrusion. The neural foramina are patent bilaterally. L2-L3: The thecal sac has a normal diameter. No evidence of disc bulge or protrusion. The neural foramina are patent bilaterally. L3-L4: The thecal sac has a normal diameter. No evidence of disc bulge or protrusion. The neural foramina are patent bilaterally. L4-L5: The thecal sac has a normal diameter. No evidence of disc bulge or protrusion. The neural foramina are patent bilaterally. L5-S1: The thecal sac has a normal diameter. No evidence of disc bulge or protrusion. The neural foramina are patent bilaterally. CONCLUSION: Negative exam. Duong Cope MD on March 14, 2018 at 16:52 Board Certified Radiologist. This report was verified electronically.
[2018-03-14] MEDS ORDERED: IOHEXOL 350 MG/ML 10 ML VIAL (for RAD DIAG) IVCONTRAST ONE (17:16)
--- NOTE | 2018-03-14 17:18 | RADRPT ---
EXAM DATE/TIME: 03/14/2018 16:52 [facility] COMPARISON: No previous studies available for comparison. INDICATIONS : Evaluate for mass. IV CONTRAST: 95 cc Omnipaque 350 (iohexol) IV RADIATION DOSE: 5.46 CTDIvol (mGy) ; Combined studies - Thorax/Abdomen/Pelvis MEDICAL HISTORY : Hernia, hiatal. Gastroesophageal reflux disease. Intracranial lesion. SURGICAL HISTORY : section. ENCOUNTER: Initial ACUITY: 1 day PAIN SCALE: 0/10 LOCATION: chest TECHNIQUE: Volumetric scanning of the chest was performed. Using automated exposure control and adjustment of t he mA and/or kV according to patient size, radiation dose was kept as low as reasonably achievable to obtain optimal diagnostic quality images. DICOM format image data is available electronically for review and comparison. Follow-up recommendations for detected pulmonary nodules are based at a minimum on nodule size and pa tient risk factors according to Fleischner Society Guidelines. FINDINGS: LUNGS: There is no consolidation or pneumothorax. No concerning pulmonary nodule is visualized. PLEURA: There is no pleural thickening or pleural effusion. MEDIASTINUM: The heart and great vessels demonstrate no acute abnormality. There is no mediastinal or hilar lymph adenopathy. AXILLAE: Within normal limits. No lymphadenopathy. SKELETAL: Within normal limits for patient age. MISCELLANEOUS: The visualized upper abdominal organs demonstrate no acute abnormality. CONCLUSION: No acute findings in the chest Pablo Johnson MD on March 14, 2018 at 17:14 Board Certified Radiologist. This report was verified electronically.
--- NOTE | 2018-03-14 17:22 | RADRPT ---
EXAM DATE/TIME: 03/14/2018 16:52 [place] COMPARISON: No previous studies available for comparison. INDICATIONS : Evaluate for mass. IV CONTRAST: 95 cc Omnipaque 350 (iohexol) IV ORAL CONTRAST: Prescribed oral contrast ingested. RADIATION DOSE: 5.46 CTDIvol (mGy) ; Combined studies - Thorax/Abdomen/Pelvis MEDICAL HISTORY : Hernia, hiatal. Gastroesophageal reflux disease. Intracranial lesion. SURGICAL HISTORY : section. ENCOUNTER: Initial ACUITY: 1 day PAIN SCALE: 0/10 LOCATION: Bilateral Abdomen TECHNIQUE: Volumetric scanning of the abdomen and pelvis was performed. Using automated exposure control and ad justment of the mA and/or kV according to patient size, radiation dose was kept as low as reasonably achievable to obtain optimal diagnostic quality images. DICOM format image data is available electro nically for review and comparison. FINDINGS: LOWER LUNGS: The visualized lower lungs are clear. LIVER: Homogeneous density without lesion. There is no dilation of the biliary tree. No calcified gallston es. SPLEEN: Normal size without lesion. PANCREAS: Within normal limits. KIDNEYS: Normal in size and shape. There is no mass, stone or hydronephrosis. ADRENAL GLANDS: Within normal limits. VASCULAR: There is no aortic aneurysm. BOWEL/MESENTERY: The stomach, small bowel, and colon demonstrate no acute abnormality. There is no free intraperitone al air or fluid. ABDOMINAL WALL: Within normal limits. RETROPERITONEUM: There is no lymphadenopathy. BLADDER: No wall thickening or mass. REPRODUCTIVE: Within normal limits. INGUINAL: Shotty inguinal nodes. MUSCULOSKELETAL: Within normal limits for patient age. CONCLUSION: No acute CT findings in the abdomen or pelvis. Pablo Johnson MD on March 14, 2018 at 17:18 Board Certified Radiologist. This report was verified electronically.
[2018-03-15] VITALS (9 sets, daily range): BP systolic 110–137; BP diastolic 64–78; PULSE 59–72; RESP 18–19; TEMP 97.6–98.3; O2SAT 100
[2018-03-15] MEDS: SODIUM CHLOR 0.9% 1000 ML INJ 1,000 ML IV SCH ×3 (01:12→21:35)
--- NOTE | 2018-03-15 07:45 | HHI.PR ---
Objective Vital Signs Date Time Temp Pulse Resp B/P (MAP) Pulse Ox O2 Delivery O2 Flow Rate FiO2 03/15/18 04:00 97.6 67 18 116/65 (82) 100 03/15/18 04:00 62 03/15/18 00:00 59 03/15/18 00:00 97.9 68 18 118/64 (82) 100 03/14/18 20:00 97.5 62 18 97/53 (68) 100 03/14/18 20:00 68 03/14/18 16:00 97.9 72 20 128/77 (94) 100 03/14/18 13:38 77 03/14/18 12:00 97.8 77 20 119/71 (87) 100 03/14/18 08:05 63 03/14/18 08:00 98.2 62 20 105/71 (82) 99 I/O 03/14/18 03/14/18 03/14/18 03/15/18 03/15/18 03/15/18 07:00 15:00 23:00 07:00 15:00 23:00 Intake Total 980 ml 1000 ml Balance 980 ml 1000 ml Intake IV Total 980 ml 1000 ml # Voids 3 4 # Bowel Movements 1 Result Diagram: 03/14/18 0703/14/18 07 Objective Remarks awake alert nl speech gait up and walking well Assessment and Plan Assessment and Plan imp lab neg no new co mri c spine cord at c 5 enhances and may have thoracic spot also ct abd and chest neg id consulted could be atypical ms if nusu oks we could do LP later today but would need their clearance first for it and opinion let me know what they come up with today so we can move [place] ahead Lloyd Zamarripa MD March 15, 2018 07:45
[2018-03-15] MEDS: DOCUSATE SODIUM 50 MG/SENNA 8.6 MG TAB PO SCH ×2 (08:06→21:00)
[2018-03-15] MEDS: SODIUM CHLORIDE 0.9% FLUSH 10 ML FLUSH IV FLUSH SCH ×2 (08:07→21:33)
--- NOTE | 2018-03-15 11:11 | HHI.PR ---
Subjective Remarks Patient is complaining bilateral fingertips numbness no significant weakness. No headaches or visual changes no difficulty swallowing, no difficulty with hearing. Objective Vitals Vital Signs Date Time Temp Pulse Resp B/P (MAP) Pulse Ox O2 Delivery O2 Flow Rate FiO2 03/15/18 09:42 69 03/15/18 08:00 98.3 65 18 110/71 (84) 100 03/15/18 04:00 97.6 67 18 116/65 (82) 100 03/15/18 04:00 62 03/15/18 00:00 59 03/15/18 00:00 97.9 68 18 118/64 (82) 100 03/14/18 20:00 97.5 62 18 97/53 (68) 100 03/14/18 20:00 68 03/14/18 16:00 97.9 72 20 128/77 (94) 100 03/14/18 13:38 77 03/14/18 12:00 97.8 77 20 119/71 (87) 100 I/O 03/14/18 03/14/18 03/14/18 03/15/18 03/15/18 03/15/18 07:00 15:00 23:00 07:00 15:00 23:00 Intake Total 980 ml 1000 ml Balance 980 ml 1000 ml Intake IV Total 980 ml 1000 ml # Voids 3 4 # Bowel Movements 1 Result Diagram: 03/14/18 0703/14/18 07 Imaging Last Impressions Thoracic Spine MRI 03/14/181126 Signed Impressions: Service Date/Time: Wednesday, March 14, 2018 13:20 - CONCLUSION: 1. Faint increased T2 and inversion recovery signal posterior to the T4-5 disc interspace and T7 vertebral bodies possibly representing old demyelinating plaques. 2. Otherwise , no active disease. No abnormal enhancement. Spinal canal is patent throughout Duong Cope MD Lumbar Spine MRI 03/14/181126 Signed Impressions: Service Date/Time: Wednesday, March 14, 2018 13:20 - CONCLUSION: Negative exam. Duong Cope MD Cervical Spine MRI 03/14/181126 Signed Impressions: Service Date/Time: Wednesday, March 14, 2018 13:20 - CONCLUSION: 1. Old demyelinating plaque posteriorly in the right side of the cord at C3-4. 2. Active demyelinating plaque centrally in the cord at C4-5. 3. Spinal canal and neural foramina are patent throughout without cord or nerve root compromise Duong Cope MD Chest CT 03/14/18 0000 Signed Impressions: Service Date/Time: Wednesday, March 14, 2018 16:52 - CONCLUSION: No acute findings in the chest Pablo Johnson MD Abdomen/Pelvis CT 03/14/18 0000 Signed Impressions: Service Date/Time: Wednesday, March 14, 2018 16:52 - CONCLUSION: No acute CT findings in the abdomen or pelvis. Pablo Johnson MD Head CT 03/13/18 0000 Signed Impressions: Service Date/Time: Tuesday, March 13, 2018 16:44 - CONCLUSION: 1. 1.8 x 1.3 cm hypodense region in the right frontal high convexity subcortical white matter without evidence for significant mass effect. Differential considerations include demyelinating process such as multiple sclerosis versus focal infarction or less likely mass. Nilton Dobbs MD Cervical Spine CT 03/13/18 0000 Signed Impressions: Service Date/Time: Tuesday, March 13, 2018 16:44 - CONCLUSION: 1. Unremarkable CT examination of the cervical spine. Patent bony central canal and neural foramina. Nilton Dobbs MD Brain MRI 03/13/18 0000 Signed Impressions: Service Date/Time: Tuesday, March 13, 2018 19:49 - CONCLUSION: 1. Abnormality on CT corresponds to a 1.4 cm peripherally enhancing mass in the subcortical biparietal high convexities with associated surrounding vasogenic edema and second more subtle inferior Satellite lesion measuring 7 mm. Differential considerations include tumefactive MS versus primary or metastatic malignancy. Clinical correlation is recommended. MR spectroscopy may be performed if there is continued clinical uncertainty. Nilton Dobbs MD Objective Remarks GENERAL: This is a well-nourished, well-developed patient, in no apparent distress. CARDIOVASCULAR: Regular rate and rhythm RESPIRATORY: Clear to auscultation. Breath sounds equal bilaterally. No wheezes , rales, or rhonchi. GASTROINTESTINAL: Abdomen soft, non-tender, nondistended. Normal active bowel sounds MUSCULOSKELETAL: Extremities without clubbing, cyanosis, or edema. NEURO: Alert & Oriented x4 to person, place, time, situation. Moves all ext x4 A/P Problem List: (1) Brain lesion ICD Code: G93.9 - Disorder of brain, unspecified Status: Acute Assessment and Plan 1. Brain Lesion: per history acute onset of RUE/RLE numbness/tingling x1 day, no slurred speech, weakness nor facial droop. CT Head w/ 1.8 x 1.3 cm right frontal subcortical lesion, possibly MS versus stroke versus mass. appreciate neurology recommendations for further evaluation. Dr. Zamarripa has order MRI of the cervical, thoracic and L-spine, further lab work currently pending along a with a neurosurgical evaluation for biopsy of the lesion. MRI of the T-spine showed spots and T2, T4-5 T7, C3-4 C4-5 active lesions Neurology has also consult infectious disease as he feels this could be atypical MS and recommending lumbar puncture if okay with neurosurgery. Hold ASA/Heparin for possible LP depending on MRI results. Neuro Checks are stable and improving. PT for evaluation and treatment 2. DVT Prophylaxis: SCD/Teds Discharge Planning home when stable and cleared by neurology Cecy Orourke MD March 15, 2018 11:11
--- NOTE | 2018-03-15 16:21 | PD.ID.CON ---
History of Present Illness Service ID Consult Requested By Dr Romero Reason for Consult brain abscess Primary Care Physician No Primary Care Physician Diagnoses: History of Present Illness 42 F with unremarkable pasat med history developped new onset tingling in R hand and foot No vision issues what so ever no fever no chills MRI w contrast showed multiple lesions including one large enchancing in R parietal area WBC serum wnl, RPR normal, CRP and ESR are normal Pt apparently endorses some intermittent headaches Review of Systems Neurologic: COMPLAINS OF: Headache, Paresthesias Except as stated in HPI: all other systems reviewed are Neg Past Family Social History Allergies: Coded Allergies: amoxicillin (Unverified Adverse Reaction, Severe, GI BLEED, 03/13/18) clavulanic acid (Unverified Adverse Reaction, Severe, GI BLEED, 03/13/18) Past Medical History none Past Surgical History C section Active Ordered Medications Medications where reviewed in EMR Antibiotics Include: none Family History multiple cancers in family Social History 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 No ETOH. No Illicit Drugs. Physical Exam Vital Signs Vital Signs Date Time Temp Pulse Resp B/P (MAP) Pulse Ox O2 Delivery O2 Flow Rate FiO2 03/15/18 13:25 63 03/15/18 12:00 98.3 70 19 115/71 (86) 100 03/15/18 09:42 69 03/15/18 08:00 98.3 65 18 110/71 (84) 100 03/15/18 04:00 97.6 67 18 116/65 (82) 100 03/15/18 04:00 62 03/15/18 00:00 59 03/15/18 00:00 97.9 68 18 118/64 (82) 100 03/14/18 20:00 97.5 62 18 97/53 (68) 100 03/14/18 20:00 68 Physical Exam CONSTITUTIONAL/GENERAL: This is an overweight female patient, in no apparent distress. TUBES/LINES/DRAINS: SKIN: No jaundice, rashes, or lesions. Skin temperature appropriate. Not diaphoretic. HEAD: Atraumatic. Normocephalic. EYES: Pupils equal and round and reactive. Extraocular motions intact. No scleral icterus. No injection or drainage. Fundi not examined. ENT: Hearing grossly normal. Nose without bleeding or purulent drainage. Throat without visible erythema, exudates, masses, or lesions. NECK: Trachea midline. Supple, nontender. No palpable thyroid enlargement or nodularity. CARDIOVASCULAR: Regular rate and rhythm without murmurs, gallops, or rubs. No JVD. Peripheral pulses symmetric. RESPIRATORY/CHEST: Symmetric, unlabored respirations. Clear to auscultation. Breath sounds equal bilaterally. No wheezes, rales, or rhonchi. GASTROINTESTINAL: Abdomen soft, non-tender, nondistended. No hepato-splenomegaly , or palpable masses. No guarding. Bowel sounds present. GENITOURINARY: Without palpable bladder distension. MUSCULOSKELETAL: Extremities without clubbing, cyanosis, or edema. No joint tenderness or effusion noted. No calf tenderness. No mottling or clubbing. LYMPHATICS: No palpable cervical or supraclavicular adenopathy. NEUROLOGICAL: Awake and alert. Motor and sensory grossly within normal limits. Follows commands. Cognitively sharp.Speech normal Moves all extremities. PSYCHIATRIC: No obvious anxiety/depression. no apparent hallucinations or other psychotic thought process. Result Diagram: 03/14/18 0726 03/14/18 0726 Imaging Last Impressions Thoracic Spine MRI 03/14/181126 Signed Impressions: Service Date/Time: Wednesday, March 14, 2018 13:20 - CONCLUSION: 1. Faint increased T2 and inversion recovery signal posterior to the T4-5 disc interspace and T7 vertebral bodies possibly representing old demyelinating plaques. 2. Otherwise , no active disease. No abnormal enhancement. Spinal canal is patent throughout Duong Cope MD Lumbar Spine MRI 03/14/18 1127 Signed Impressions: Service Date/Time: Wednesday, March 14, 2018 13:20 - CONCLUSION: Negative exam. Duong Cope MD Cervical Spine MRI 03/14/18 1127 Signed Impressions: Service Date/Time: Wednesday, March 14, 2018 13:20 - CONCLUSION: 1. Old demyelinating plaque posteriorly in the right side of the cord at C3-4. 2. Active demyelinating plaque centrally in the cord at C4-5. 3. Spinal canal and neural foramina are patent throughout without cord or nerve root compromise Duong oCpe MD Chest CT 03/14/18 0000 Signed Impressions: Service Date/Time: Wednesday, March 14, 2018 16:52 - CONCLUSION: No acute findings in the chest Pablo Johnson MD Abdomen/Pelvis CT 03/14/18 Signed Impressions: Service Date/Time: Wednesday, March 14, 2018 16:52 - CONCLUSION: No acute CT findings in the abdomen or pelvis. Pablo Johnson MD Head CT 03/13/18 Signed Impressions: Service Date/Time: Tuesday, March 13, 2018 16:44 - CONCLUSION: 1. 1.8 x 1.3 cm hypodense region in the right frontal high convexity subcortical white matter without evidence for significant mass effect. Differential considerations include demyelinating process such as multiple sclerosis versus focal infarction or less likely mass. Nilton Dobbs MD Cervical Spine CT 03/13/18 Signed Impressions: Service Date/Time: Tuesday, March 13, 2018 16:44 - CONCLUSION: 1. Unremarkable CT examination of the cervical spine. Patent bony central canal and neural foramina. Nilton Dobbs MD Brain MRI 03/13/18 Signed Impressions: Service Date/Time: Tuesday, March 13, 2018 19:49 - CONCLUSION: 1. Abnormality on CT corresponds to a 1.4 cm peripherally enhancing mass in the subcortical biparietal high convexities with associated surrounding vasogenic edema and second more subtle inferior Satellite lesion measuring 7 mm. Differential considerations include tumefactive MS versus primary or metastatic malignancy. Clinical correlation is recommended. MR spectroscopy may be performed if there is continued clinical uncertainty. Nilton Dobbs MD Assessment and Plan Assessment and Plan [employer] lesion, r/o brain abscess dw neuroradiologist Dr Ramachandran: the yolanda lesion is unlikely to be an abscess, but according to neuroradiologist either malignancy or MS Rec's: brain bx. If c/w abscess will start on abx Discussed Condition With Deisy Arroyo MD March 15, 2018 16:21
--- NOTE | 2018-03-15 16:47 | HHI.NSPN ---
(Candi Sullivan) Note Status Status: Progress Note (Candi Sullivan) Interval History Interval History 03/15: feeling ok, reports of numbness to both hands. denies headaches, seizures , vomiting, fevers. (Candi Sullivan) Labs, Micro, & Vital Signs Results Date Time Temp Pulse Resp B/P (MAP) Pulse Ox O2 Delivery O2 Flow Rate FiO2 03/15/18 13:25 63 03/15/18 12:00 98.3 70 19 115/71 (86) 100 03/15/18 09:42 69 03/15/18 08:00 98.3 65 18 110/71 (84) 100 03/15/18 04:00 97.6 67 18 116/65 (82) 100 03/15/18 04:00 62 03/15/18 00:00 59 03/15/18 00:00 97.9 68 18 118/64 (82) 100 03/14/18 20:00 97.5 62 18 97/53 (68) 100 03/14/18 20:00 68 03/16/18 06:59 Intake Total 980 ml Balance 980 ml Constitutional Vital Signs Date Time Temp Pulse Resp B/P (MAP) Pulse Ox O2 Delivery O2 Flow Rate FiO2 03/15/18 13:25 63 03/15/18 12:00 98.3 70 19 115/71 (86) 100 03/15/18 09:42 69 03/15/18 08:00 98.3 65 18 110/71 (84) 100 03/15/18 04:00 97.6 67 18 116/65 (82) 100 03/15/18 04:00 62 03/15/18 00:00 59 03/15/18 00:00 97.9 68 18 118/64 (82) 100 03/14/18 20:00 97.5 62 18 97/53 (68) 100 03/14/18 20:00 68 03/16/18 06:59 Intake Total 980 ml Balance 980 ml (Candi Sullivan) Physical Exam GENERAL: No acute distress. HEENT: Normocephalic, pupils equal. Nonicteric sclera. CARDIOVASCULAR: Regular rate and rhythm RESPIRATORY: Nonlabored. Clear, no wheezing. GASTROINTESTINAL: Abdomen soft, non-tender, nondistended. BS normal. MUSCULOSKELETAL: Extremities without clubbing, cyanosis, or edema. No obvious deformities. NEUROLOGICAL: Awake, alert and oriented x4. RUE/RLE numbness/tingling, no motor weakness. Moving both upper and lower extremities well. (Candi Sullivan) GENERAL: No acute distress. HEENT: Normocephalic, pupils equal. Nonicteric sclera. CARDIOVASCULAR: Regular rate and rhythm RESPIRATORY: Nonlabored. Clear, no wheezing. GASTROINTESTINAL: Abdomen soft, non-tender, nondistended. BS normal. MUSCULOSKELETAL: Extremities without clubbing, cyanosis, or edema. No obvious deformities. NEUROLOGICAL: Awake, alert and oriented x4. RUE/RLE numbness/tingling, no motor weakness. Moving both upper and lower extremities well. (Cam Harmon MD) Medications Current Medications Current Medications Medications (Trade) Dose Ordered Sig/Clint Route PRN Reason Start Time Stop Time Status Last Admin Dose Admin Sodium Chloride 1,000 ml @ 100 mls/hr Q10H IV 03/13/18 19:01 03/15/18 11:40 Sodium Chloride (NS Flush) 2 ml UNSCH PRN IV FLUSH FLUSH AFTER USING IV ACCESS 03/13/18 19:15 Sodium Chloride (NS Flush) 2 ml BID IV FLUSH 03/13/18 21:00 03/13/18 23:10 Acetaminophen (Tylenol) 650 mg Q6H PRN PO FEVER/PAIN SCALE 1 TO 2 03/13/18 19:15 Acetaminophen/ Hydrocodone Bitart ([place] 5-325 Mg) 1 tab Q4H PRN PO PAIN SCALE 3 TO 5 03/13/18 19:15 03/14/18 21:05 Acetaminophen/ Hydrocodone Bitart ([place] 10-325 Mg) 1 tab Q4H PRN PO PAIN SCALE 6 TO 10 03/13/18 19:15 Senna/Docusate Sodium (Bekah-Colace) 1 tab BID PO 03/13/18 21:00 03/15/18 08:06 Magnesium Hydroxide (Milk Of Magnesia Liq) 30 ml Q12H PRN PO Mild constipation 5/20/18 19:15 Sennosides (Senokot) 17.2 mg Q12H PRN PO Moderate constipation 03/13/18 19:15 Bisacodyl (Dulcolax Supp) 10 mg DAILY PRN RECTAL SEVERE CONSITIPATION 03/13/18 19:15 Lactulose (Lactulose Liq) 30 ml DAILY PRN PO SEVERE CONSITIPATION 03/13/18 19:15 Vancomycin HCl 1000 mg/Sodium Chloride 250 ml @ 250 mls/hr ONCE ONCE IV 03/16/18 06:00 03/16/18 06:59 Chlorhexidine Gluconate (Hibiclens 4% Top Soln) 1 applic HS TOP 03/15/18 21:00 03/17/18 21:01 (Candi Sullivan) Current Medications Current Medications Sodium Chloride 1,000 ml @ 999 mls/hr BOLUS ONCE IV Last administered on 03/13at 16:29; Start 03/13/18 at 15:15; Stop 03/13/18 at 16:15; Status DC Sodium Chloride 1,000 ml @ 100 mls/hr Q10H IV Last administered on 03/18/18at 03:02; Start 03/13/18 at 19:01; Stop 03/19/18 at 17:17; Status DC Sodium Chloride (NS Flush) 2 ml UNSCH PRN IV FLUSH FLUSH AFTER USING IV ACCESS ; Start 03/13/18 at 19:15; Stop 03/19/18 at 17:17; Status DC Sodium Chloride (NS Flush) 2 ml BID IV FLUSH Last administered on 03/19/18at 08: 56; Start 03/13/18 at 21:00; Stop 03/19/18 at 17:17; Status DC Acetaminophen (Tylenol) 650 mg Q6H PRN PO FEVER/PAIN SCALE 1 TO 2; Start at 19:15; Stop 03/19/18 at 17:17; Status DC Acetaminophen/ Hydrocodone Bitart ([place] 5-325 Mg) 1 tab Q4H PRN PO PAIN SCALE 3 TO 5 Last administered on 03/19/18at 08:54; Start 03/13/18 at 19:15; Stop 03/19/18 at 17:17; Status DC Acetaminophen/ Hydrocodone Bitart ([place] 10-325 Mg) 1 tab Q4H PRN PO PAIN SCALE 6 TO 10 Last administered on 03/19/18at 15:15; Start 03/13/18 at 19:15; Stop 03/19/18 at 17:17; Status DC Senna/Docusate Sodium (Bekah-Colace) 1 tab BID PO Last administered on at 08:06; Start 03/13/18 at 21:00; Stop 03/19/18 at 17:17; Status DC Magnesium Hydroxide (Milk Of Magnesia Liq) 30 ml Q12H PRN PO Mild constipation ; Start 03/13/18 at 19:15; Stop 03/19/18 at 17:17; Status DC Sennosides (Senokot) 17.2 mg Q12H PRN PO Moderate constipation; Start 03/13/18 at 19:15; Stop 03/19/18 at 17:17; Status DC Bisacodyl (Dulcolax Supp) 10 mg DAILY PRN RECTAL SEVERE CONSITIPATION; Start at 19:15; Stop 03/19/18 at 17:17; Status DC Lactulose (Lactulose Liq) 30 ml DAILY PRN PO SEVERE CONSITIPATION; Start at 19:15; Stop 03/19/18 at 17:17; Status DC Gadodiamide (Omniscan Pf Inj) 14 ml STK-MED ONCE IVCONTRAST Last administered on 03/13/18at 20:02; Start 03/13/18 at 20:02; Stop 03/13/18 at 20:03; Status DC Diatrizoate Meglum/ Diatrizoate Sod ( Gastroview Liq) 18 ml ONCE ONCE PO Last administered on 03/14/18at 15:15; Start 03/14/18 at 12:15; Stop 03/14/18 at 12:16; Status DC Gadodiamide (Omniscan Pf Inj) 13 ml STK-MED ONCE IV PUSH Last administered on at 15:10; Start 03/14/18 at 15:10; Stop 03/14/18 at 15:11; Status DC Iohexol (Omnipaque 350 Inj) 95 ml STK-MED ONCE IVCONTRAST Last administered on 03/14/18at 17:16; Start 03/14/18 at 17:16; Stop 03/14/18 at 17:17; Status DC Vancomycin HCl 1000 mg/Sodium Chloride 250 ml @ 250 mls/hr ONCE ONCE IV ; Start 03/16/18 at 06:00; Stop 03/16/18 at 06:59; Status DC Chlorhexidine Gluconate (Hibiclens 4% Top Soln) 1 applic HS TOP Last administered on 03/15/18at 22:15; Start 03/15/18 at 21:00; Stop 03/17/18 at 21:01 ; Status DC Gadodiamide (Omniscan Pf Inj) 16 ml STK-MED ONCE IVCONTRAST Last administered on 03/17/18at 13:33; Start 03/17/18 at 13:31; Stop 03/17/18 at 13:32; Status DC Methylprednisolone Sodium Succinate 1000 mg/Dextrose 266 ml @ 266 mls/hr Q24H IV Last administered on 03/19/18at 15:05; Start 03/17/18 at 16:00; Stop at 16:59; Status DC Pantoprazole Sodium (Protonix) 40 mg Q24H PO Last administered on 03/19/18at 15: 05; Start 03/17/18 at 15:00; Stop 03/19/18 at 17:17; Status DC (Cam Harmon MD) Medical Decision Making MDM Remarks 42 year old female with right parietal brain lesion, ?etiology MRI Cervical spine shows demyelinating plaques, old posteriorly in the right side of the cord at C3-4. Active demyelinating plaque centrally in the cord at C4-5. (Candi Sullivan) Plan Plan Remarks Dr. Harmon cleared for LP for CSF analysis, cont neurology w/u for biopsy of brain lesion tomorrow NPO tonight (Candi Sullivan) Attending Statement 42 year old female with right parietal brain lesion, ?etiology MRI Cervical spine shows demyelinating plaques, old posteriorly in the right side of the cord at C3-4. Active demyelinating plaque centrally in the cord at C4-5. Cleared for LP for CSF analysis, cont neurology w/u Discussed extensively with Dr Orellana The lesion is too small, and the technology available at [place] is 10 years old, I don't this is for biopsy of a small brain lesion The exam, history, and the medical decision-making described in the above note were completed with the assistance of the mid-level provider. I reviewed and agree with the findings presented. I attest that I had a [id number] encounter with the patient on the same day, and personally performed and documented my assessment and findings in the medical record. (Cam Harmon MD) Candi Sullivan March 15, 2018 16:47 Cam Harmon MD March 22, 2018 09:26
[2018-03-15] MEDS: CHLORHEXIDINE GLUCONATE 4% SOLN 120 ML BTL TOP SCH (22:15)
[2018-03-16] VITALS (10 sets, daily range): BP systolic 104–125; BP diastolic 59–84; PULSE 57–74; RESP 18; TEMP 97.9–98.4; O2SAT 98–100
[2018-03-16] MEDS ORDERED: VANCOMYCIN INJ 1,000 MG in SODIUM CHLOR 0.9% 250 ML INJ 250 ML IV ONE (06:00)
[2018-03-16] MEDS: SODIUM CHLOR 0.9% 1000 ML INJ 1,000 ML IV SCH ×2 (06:36→17:01)
[2018-03-16] MEDS: SODIUM CHLORIDE 0.9% FLUSH 10 ML FLUSH IV FLUSH SCH ×2 (08:07→21:00)
[2018-03-16] MEDS: DOCUSATE SODIUM 50 MG/SENNA 8.6 MG TAB PO SCH ×2 (08:08→21:00)
--- NOTE | 2018-03-16 08:10 | HHI.PR ---
Objective Vital Signs Date Time Temp Pulse Resp B/P (MAP) Pulse Ox O2 Delivery O2 Flow Rate FiO2 03/16/18 04:57 97.9 70 18 104/59 (74) 98 03/16/18 00:44 98.1 64 18 107/60 (76) 98 03/16/18 00:40 58 03/15/18 22:48 72 03/15/18 19:45 97.7 67 18 116/68 (84) 100 03/15/18 16:00 98.2 66 18 137/78 (97) 100 03/15/18 13:25 63 03/15/18 12:00 98.3 70 19 115/71 (86) 100 03/15/18 09:42 69 I/O 03/15/18 03/15/18 03/15/18 03/16/18 03/16/18 03/16/18 07:00 15:00 23:00 07:00 15:00 23:00 Intake Total 1000 ml 980 ml 955 ml 955 ml Balance 1000 ml 980 ml 955 ml 955 ml Intake IV Total 1000 ml 980 ml 955 ml 955 ml # Voids 4 1 Result Diagram: 03/14/1872503/14/18725 Objective Remarks awake alert nl speech gait up and walking well Assessment and Plan Assessment and Plan imp lab neg no new co mri c spine cord at c 5 enhances and may have thoracic spot also ct abd and chest neg id consulted neg could be atypical ms nusu cleared lp ordersin i will sam bettencourt bx options Lloyd Zamarripa MD March 16, 2018 08:09
[2018-03-16 08:14] LABS: BICARBONATE 25.5 MEQ/L (21.0-32.0); CALCIUM 8.1 MG/DL (8.5-10.1); CREATININE 0.62 MG/DL (0.50-1.00)
[2018-03-16 08:38] LABS: METHYLMALONIC ACID 0.1 nmol/mL (<=0.40)
[2018-03-16 10:07] LABS: HEMATOCRIT 36.2 % (35.0-46.0); HEMOGLOBIN 11.8 GM/DL (11.6-15.3); MEAN CORPUSCULAR HEMOGLOBIN 28.8 PG (27.0-34.0); MEAN CORPUSCULAR HGB CONC 32.7 % (32.0-36.0); MEAN PLATELET VOLUME 8.4 FL (7.0-11.0); PLATELET COUNT 362 TH/MM3 (150-450); RED BLOOD COUNT 4.11 MIL/MM3 (4.00-5.30); RED CELL DISTRIBUTION WIDTH 14.6 % (11.6-17.2); WHITE BLOOD COUNT 3.9 TH/MM3 (4.0-11.0)
[2018-03-16] MEDS: ACETAMINOPHEN/HYDROcodone 325 MG/5 MG TAB PO PRN ×4 (10:10→22:20)
[2018-03-16 10:19] LABS: INTERNATIONAL NORMALIZED RATIO 1.1 RATIO
[2018-03-16 10:31] LABS: RBC TUBE #1 1721 /MM3; WBC TUBE #1 75 /MM3 (0-10)
[2018-03-16 10:32] LABS: CSF LYMPHOCYTES 89 %; CSF MONOCYTES 4 %; CSF NEUTROPHILS 7 %
[2018-03-16 10:41] LABS: SUPERNATE COLOR TUBE #1 CLEAR (CLEAR)
--- NOTE | 2018-03-16 11:17 | MB ---
cc: Cam Harmon MD DATE: 03/16/2018 REQUESTING PHYSICIAN FOR CONSULTATION: Dr. Lloyd Zamarripa. INDICATIONS FOR CONSULTATION: Multiple brain lesions. CHIEF COMPLAINT: Tingling and numbness on the right side. HISTORY OF PRESENT ILLNESS: The patient is a 42-year-old previously healthy female, who presented with a 2-day history of tingling and numbness on the fingers of the right hand. It would seem to travel up her right arm and right lower extremity. She also has some tingling on her neck; however, she denies any tingling in her face. She denies any focal motor weakness. She came to the emergency department and a CT of the brain showed a hypodensity in the right frontal region. MRI of the brain showed a round, cystic lesion with some edema and a smaller diffusely enhancing lesion. She underwent MRI of the spine that shows some demyelinating plaques. She denies any focal weakness. She denies any fever, denies any chills, denies any incontinence of stool or urine. The patient was evaluated by a neurologist, Dr. Zamarripa, who has recommended a lumbar puncture. She was also evaluated by an infectious disease doctor. Neurosurgical consultation was requested. PAST MEDICAL HISTORY: Unremarkable. MEDICATIONS: None at home. SOCIAL HISTORY: The patient does not smoke cigarettes. She does not drink alcohol. No history of illicit drug use. She lives by herself. FAMILY HISTORY: Reviewed and it was positive for cancer in her father. There is no history of seizure, strokes or other demyelinating conditions. REVIEW OF SYSTEMS: She denies any fever or chills. Denies any weight loss. Denies any shortness of breath. Denies any history of hepatic, pulmonary, renal or thyroid disease, cancer, lupus, seizure or stroke. PHYSICAL AND NEUROLOGICAL EXAMINATION: GENERAL: The patient is alert, awake, oriented to time, place, and person. CRANIAL NERVES: Pupils are equal, round, reactive to light. Extraocular movements are intact. There is no nystagmus. There is no papilledema. Face musculature is symmetrical in all branches of the distribution of the facial nerve. Face sensation is symmetrical in a V1, V2 and V3 distribution of the trigeminal nerve to pin prick. The tongue protrudes in the midline and moves normally. The sternocleidomastoid and trapezius are symmetrical. Hearing is grossly intact. There is no evidence of rhinorrhea. There is no evidence of hemotympanum. (Neck
--- NOTE | 2018-03-16 11:26 | HHI.PR ---
Addendum to Inpatient Note Additional Information CSF results noted Lymphocytic pleocytosis Will dw with Deisy Sánchez MD March 16, 2018 11:26
--- NOTE | 2018-03-16 17:01 | HHI.NSPN ---
Note Status Status: Progress Note Interval History Interval History 03/15: feeling ok, reports of numbness to both hands. denies headaches, seizures , vomiting, fevers. 03/16: Brain biopsy held today, follow-up LP workup. Otherwise patient doing okay, she denies new neurological complaints. Labs, Micro, & Vital Signs Results Date Time Temp Pulse Resp B/P (MAP) Pulse Ox O2 Delivery O2 Flow Rate FiO2 03/16/18 16:33 66 03/16/18 12:00 98.4 57 18 107/62 (77) 99 03/16/18 11:55 61 03/16/18 08:00 98.2 72 18 125/71 (89) 100 03/16/18 04:57 97.9 70 18 104/59 (74) 98 03/16/18 00:44 98.1 64 18 107/60 (76) 98 03/16/18 00:40 58 03/15/18 22:48 72 03/15/18 19:45 97.7 67 18 116/68 (84) 100 Constitutional Vital Signs Date Time Temp Pulse Resp B/P (MAP) Pulse Ox O2 Delivery O2 Flow Rate FiO2 03/16/18 16:33 66 03/16/18 12:00 98.4 57 18 107/62 (77) 99 03/16/18 11:55 61 03/16/18 08:00 98.2 72 18 125/71 (89) 100 03/16/18 04:57 97.9 70 18 104/59 (74) 98 03/16/18 00:44 98.1 64 18 107/60 (76) 98 03/16/18 00:40 58 03/15/18 22:48 72 03/15/18 19:45 97.7 67 18 116/68 (84) 100 Review of Systems Constitutional: DENIES: Fever, Chills Cardiovascular: DENIES: Chest pain Neurologic: COMPLAINS OF: Paresthesias, DENIES: Seizures Physical Exam GENERAL: No acute distress. HEENT: Normocephalic, pupils equal. Nonicteric sclera. CARDIOVASCULAR: Regular rate and rhythm RESPIRATORY: Nonlabored. Clear, no wheezing. GASTROINTESTINAL: Abdomen soft, non-tender, nondistended. BS normal. MUSCULOSKELETAL: Extremities without clubbing, cyanosis, or edema. No obvious deformities. NEUROLOGICAL: Awake, alert and oriented x4. RUE/RLE numbness/tingling, no motor weakness. Moving both upper and lower extremities well. Medications Current Medications Current Medications Medications (Trade) Dose Ordered Sig/Clint Route PRN Reason Start Time Stop Time Status Last Admin Dose Admin Sodium Chloride 1,000 ml @ 100 mls/hr Q10H IV 03/13/18 19:01 03/16/18 06:36 Sodium Chloride (NS Flush) 2 ml UNSCH PRN IV FLUSH FLUSH AFTER USING IV ACCESS 03/13/18 19:15 Sodium Chloride (NS Flush) 2 ml BID IV FLUSH 03/13/18 21:00 03/15/18 21:33 Acetaminophen (Tylenol) 650 mg Q6H PRN PO FEVER/PAIN SCALE 1 TO 2 03/13/18 19:15 Acetaminophen/ Hydrocodone Bitart ([place] 5-325 Mg) 1 tab Q4H PRN PO PAIN SCALE 3 TO 5 03/13/18 19:15 03/16/18 14:14 Acetaminophen/ Hydrocodone Bitart ([place] 10-325 Mg) 1 tab Q4H PRN PO PAIN SCALE 6 TO 10 03/13/18 19:15 Senna/Docusate Sodium ([place]ek[place]-Colace) 1 tab BID PO 03/13/18 21:00 03/15/18 08:06 Magnesium Hydroxide (Milk Of Magnesia Liq) 30 ml Q12H PRN PO Mild constipation 03/13/18 19:15 Sennosides (Senokot) 17.2 mg Q12H PRN PO Moderate constipation 03/13/18 19:15 Bisacodyl (Dulcolax Supp) 10 mg DAILY PRN RECTAL SEVERE CONSITIPATION 03/13/18 19:15 Lactulose (Lactulose Liq) 30 ml DAILY PRN PO SEVERE CONSITIPATION 03/13/18 19:15 Chlorhexidine Gluconate (Hibiclens 4% Top Soln) 1 applic HS TOP 03/15/18 21:00 03/17/18 21:01 03/15/18 22:15 Medical Decision Making MDM Remarks 42 year old female with right parietal brain lesion, ?etiology, MS lesion MRI Cervical spine shows demyelinating plaques, old posteriorly in the right side of the cord at C3-4. Active demyelinating plaque centrally in the cord at C4-5. Plan Plan Remarks continue neurology workup no further neurosurgical intervention planned at this time, will sign off, call Candi Maradiaga March 16, 2018 17:01
--- NOTE | 2018-03-16 18:15 | HHI.PR ---
Subjective Remarks The patient complains of headache. Denies fevers or chills. Patient has been afebrile. Chief complaint of numbness in upper extremities. Objective Vitals Vital Signs Date Time Temp Pulse Resp B/P (MAP) Pulse Ox O2 Delivery O2 Flow Rate FiO2 03/16/18 16:33 66 03/16/18 12:00 98.4 57 18 107/62 (77) 99 03/16/18 11:55 61 03/16/18 08:00 98.2 72 18 125/71 (89) 100 03/16/18 04:57 97.9 70 18 104/59 (74) 98 03/16/18 00:44 98.1 64 18 107/60 (76) 98 03/16/18 00:40 58 03/15/18 22:48 72 03/15/18 19:45 97.7 67 18 116/68 (84) 100 I/O 03/15/18 03/15/18 03/15/18 03/16/18 03/16/18 03/16/18 06:59 14:59 22:59 06:59 14:59 22:59 Intake Total 1000 ml 980 ml 955 ml 955 ml Balance 1000 ml 980 ml 955 ml 955 ml Intake IV Total 1000 ml 980 ml 955 ml 955 ml # Voids 4 1 Result Diagram: 03/16/18 0947 03/16/18 0652 Imaging Last Impressions Thoracic Spine MRI 03/14/181126 Signed Impressions: Service Date/Time: Wednesday, March 14, 2018 13:20 - CONCLUSION: 1. Faint increased T2 and inversion recovery signal posterior to the T4-5 disc interspace and T7 vertebral bodies possibly representing old demyelinating plaques. 2. Otherwise , no active disease. No abnormal enhancement. Spinal canal is patent throughout Duong Cope MD Lumbar Spine MRI 03/14/181126 Signed Impressions: Service Date/Time: Wednesday, March 14, 2018 13:20 - CONCLUSION: Negative exam. Duong Cope MD Cervical Spine MRI 03/14/181126 Signed Impressions: Service Date/Time: Wednesday, March 14, 2018 13:20 - CONCLUSION: 1. Old demyelinating plaque posteriorly in the right side of the cord at C3-4. 2. Active demyelinating plaque centrally in the cord at C4-5. 3. Spinal canal and neural foramina are patent throughout without cord or nerve root compromise Duong Cope MD Chest CT 03/14/18 0000 Signed Impressions: Service Date/Time: Wednesday, March 14, 2018 16:52 - CONCLUSION: No acute findings in the chest Pablo Johnson MD Abdomen/Pelvis CT 03/14/18 0000 Signed Impressions: Service Date/Time: Wednesday, March 14, 2018 16:52 - CONCLUSION: No acute CT findings in the abdomen or pelvis. Pablo Johnson MD Head CT 03/13/18 0000 Signed Impressions: Service Date/Time: Tuesday, March 13, 2018 16:44 - CONCLUSION: 1. 1.8 x 1.3 cm hypodense region in the right frontal high convexity subcortical white matter without evidence for significant mass effect. Differential considerations include demyelinating process such as multiple sclerosis versus focal infarction or less likely mass. Nilton Dobbs MD Cervical Spine CT 03/13/18 Signed Impressions: Service Date/Time: Tuesday, March 13, 2018 16:44 - CONCLUSION: 1. Unremarkable CT examination of the cervical spine. Patent bony central canal and neural foramina. Nilton Dobbs MD Brain MRI 03/13/18 Signed Impressions: Service Date/Time: Tuesday, March 13, 2018 19:49 - CONCLUSION: 1. Abnormality on CT corresponds to a 1.4 cm peripherally enhancing mass in the subcortical biparietal high convexities with associated surrounding vasogenic edema and second more subtle inferior Satellite lesion measuring 7 mm. Differential considerations include tumefactive MS versus primary or metastatic malignancy. Clinical correlation is recommended. MR spectroscopy may be performed if there is continued clinical uncertainty. Nilton Dobbs MD Objective Remarks GENERAL: No acute distress. HEENT: Normocephalic, pupils equal. Nonicteric sclera. CARDIOVASCULAR: Regular rate and rhythm RESPIRATORY: Nonlabored. Clear, no wheezing. GASTROINTESTINAL: Abdomen soft, non-tender, nondistended. BS normal. MUSCULOSKELETAL: Extremities without clubbing, cyanosis, or edema. No obvious deformities. NEUROLOGICAL: Awake, alert and oriented x4. RUE/RLE numbness/tingling, no motor weakness. Moving both upper and lower extremities well. A/P Problem List: (1) Brain lesion ICD Code: G93.9 - Disorder of brain, unspecified Status: Acute Assessment and Plan 1. Brain Lesion: per history acute onset of RUE/RLE numbness/tingling x1 day, no slurred speech, weakness nor facial droop. CT Head w/ 1.8 x 1.3 cm right frontal subcortical lesion, possibly MS versus stroke versus mass. Neurology and neurosurgery consulted. MRI of the T-spine showed spots and T2, T4-5 T7, C3-4 C4-5 active lesions ID consulted to rule out brain abscess. Doubt and it is highly unlikely that the lesion is an abscess. 03/16 as per normal radiologist either malignancy or MS. Brain biopsy recommended. LP done today. Shows lymphocytosis. Other CSF tests pending. As needed HIV 1 and 2 antibody are nonreactive. Follow-up H influenza, Neisseria meningitides, group B strep antigen, herpes simplex virus 1 and 2 DNA PCR. 2. DVT Prophylaxis: SCD/Teds Discharge Planning Continue to monitor on the medical floor. The patient is pending brain biopsy. Vicente Lacey MD March 16, 2018 18:15
[2018-03-16] MEDS: CHLORHEXIDINE GLUCONATE 4% SOLN 120 ML BTL TOP SCH (21:00)
[2018-03-17] VITALS (8 sets, daily range): BP systolic 103–121; BP diastolic 60–73; PULSE 59–81; RESP 18; TEMP 98–98.7; O2SAT 98–100
[2018-03-17] MEDS: SODIUM CHLOR 0.9% 1000 ML INJ 1,000 ML IV SCH ×3 (06:29→23:01)
--- NOTE | 2018-03-17 07:39 | HHI.PR ---
Objective Vital Signs Date Time Temp Pulse Resp B/P (MAP) Pulse Ox O2 Delivery O2 Flow Rate FiO2 03/17/18 05:33 98.5 81 18 120/71 (87) 98 03/17/18 03:59 59 03/17/18 00:12 98.0 60 18 103/60 (74) 100 03/17/18 00:10 60 03/16/18 20:00 74 03/16/18 19:22 98.2 74 18 120/84 (96) 99 03/16/18 16:33 66 03/16/18 16:00 98.3 64 18 115/76 (89) 100 03/16/18 12:00 98.4 57 18 107/62 (77) 99 03/16/18 11:55 61 03/16/18 08:00 98.2 72 18 125/71 (89) 100 I/O 03/16/18 03/16/18 03/16/18 03/17/18 03/17/18 03/17/18 07:00 15:00 23:00 07:00 15:00 23:00 Intake Total 955 ml 966 ml Balance 955 ml 966 ml Intake IV Total 955 ml 966 ml # Voids 1 Result Diagram: 03/16/18 0947 03/16/18 0652 Objective Remarks awake alert nl speechno drift vff face sym nad Assessment and Plan Assessment and Plan imp lab neg no new co mri c spine cord at c 5 enhances and may have thoracic spot also ct abd and chest neg id consulted neg could be atypical ms nusu cleared lp ordersin i will sam bettencourt bx options 03/17/18 feels and looks well csf 70 lymphocytes nl prot and gluc tests pend i dw dr ogden instead of bx will see how brain lesion evolves/or if no changes and if growing can bx then or if recedes then will not need bx i am leaning towards ms with cord abn recheck brain mri today and if stable rx steroids Lloyd Zamarripa MD March 17, 2018 07:39
[2018-03-17 08:26] LABS: HSV 1,PCR Negative (Negative)
[2018-03-17] MEDS: SODIUM CHLORIDE 0.9% FLUSH 10 ML FLUSH IV FLUSH SCH ×2 (08:35→21:00)
[2018-03-17] MEDS: DOCUSATE SODIUM 50 MG/SENNA 8.6 MG TAB PO SCH ×2 (08:36→21:00)
[2018-03-17] MEDS ORDERED: GADODIAMIDE PF 287 MG/ML 5 ML VIAL (for RAD MRI) IVCONTRAST ONE (13:31)
--- NOTE | 2018-03-17 13:32 | RADRPT ---
EXAM DATE: 03/17/2018 10:26 AM EDT AGE/SEX: 42 years / Female INDICATIONS: Patient with acute onset right upper and lower extremity numbness in need of lumbar pun cture to rule out MS. CLINICAL DATA: This is the patient's initial encounter. Patient reports that signs and symptoms have been present for 3 days and indicates a pain score of 0/10. MEDICAL/SURGICAL HISTORY: Hiatal hernia. HeadachesUterine fibroids section. COMPARISON: No prior [facility] exams available for comparison. FLUORO TIME (min): 0.25 IMAGE SERIES: 1 ACCESS SITE: L3-4 LUMBAR PUNCTURE TIME: 0846 hours FLUID: Total volume of 28 cc of clear fluid was removed. Fluid was sent to lab for ordered studies. . . PROCEDURE: 1. Fluoroscopic guided lumbar puncture. The risks, benefits and alternatives to the procedure were explained and verbal and written consent w as obtained. The site was prepped in sterile fashion. Full sterile technique was used, including ca p, mask, sterile gloves and gown and a large sterile sheet. Hand hygiene and 2% chlorhexidine and/or betadine/alcohol prep was utilized per protocol for cutaneous antisepsis. The skin and subcutaneous tissues were infiltrated with local anesthetic solution. With fluoroscopic guidance the lumbar thecal sac was punctured at the level above. The fluid describ ed above was removed without difficulty. The patient tolerated the procedure well and there were no complications. CONCLUSION: 1. Uncomplicated fluoroscopically guided lumbar puncture. Electronically signed by: Nilton Dobbs MD 03/17/2018 1:31 PM EDT
--- NOTE | 2018-03-17 14:02 | RADRPT ---
EXAM DATE: 03/17/2018 1:50 PM EDT AGE/SEX: 42 years / Female INDICATIONS: . Tingling in hands and legs. CLINICAL DATA: This is the patient's subsequent encounter. Patient reports that signs and symptoms h ave been present for 4 - 6 days and indicates a pain score of 1/10. MEDICAL/SURGICAL HISTORY: None. None. COMPARISON: [facility] [place]IN W & W/O CONTRAST, 03/13/2018. . TECHNIQUE: Multiplanar, multisequence examination of the brain was performed without and with 16 ml O mniscan (gadodiamide) contrast as a single exam dose. FINDINGS: Rim-enhancing cystic masses in the right parietal lobe white matter in noted, one measuring 16 mm and the other 9 mm, not significantly changed. Small amount of surrounding cerebral edema but no measura ble midline shift. No new lesion. No intracranial hemorrhage or hematoma. A few tiny scattered foci of chronic appearing FLAIR signal a bnormality again noted of both cerebral hemispheres, unchanged. CONCLUSION: 1. No significant change, minimal chronic appearing white matter foci, nonspecific. 2. No significant change 2 rim-enhancing masses of the right parietal lobe white matter. Electronically signed by: Pablo Keller MD 03/17/2018 2:01 PM EDT
[2018-03-17] MEDS: PANTOPRAZOLE SOD 40 MG DELAYED RELEASE TAB PO SCH (15:26)
[2018-03-17] MEDS: methylPREDNISolone SO SUCC INJ 1,000 MG in DEXTROSE 5% IN WATER INJ 250 ML IV SCH ×2 (16:40)
--- NOTE | 2018-03-17 17:22 | HHI.PR ---
Subjective Remarks Denies headache, chest pain, shortness of breath. He still complains of bilateral hand numbness. Complains of pain in her mid back. Denies fevers or chills. Objective Vitals Vital Signs Date Time Temp Pulse Resp B/P (MAP) Pulse Ox O2 Delivery O2 Flow Rate FiO2 03/17/18 12:00 98.7 78 18 121/68 (85) 98 03/17/18 08:00 98.5 71 18 112/73 (86) 100 03/17/18 05:33 98.5 81 18 120/71 (87) 98 03/17/18 03:59 59 03/17/18 00:12 98.0 60 18 103/60 (74) 100 03/17/18 00:10 60 03/16/18 20:00 74 03/16/18 19:22 98.2 74 18 120/84 (96) 99 I/O 03/16/18 03/16/18 03/16/18 03/17/18 03/17/18 03/17/18 07:00 15:00 23:00 07:00 15:00 23:00 Intake Total 955 ml 966 ml Balance 955 ml 966 ml Intake IV Total 955 ml 966 ml # Voids 1 Result Diagram: 03/16/18 0947 03/16/18 0652 Imaging Last Impressions Brain MRI 03/17/18 0000 Signed Impressions: CONCLUSION: 1. No significant change, minimal chronic appearing white matter foci, nonspec ific. 2. No significant change 2 rim-enhancing masses of the right parietal lobe whi te matter. Lumbar Puncture Fluoroscopy 03/16/18 0000 Signed Impressions: CONCLUSION: 1. Uncomplicated fluoroscopically guided lumbar puncture. Thoracic Spine MRI 03/14/181126 Signed Impressions: Service Date/Time: Wednesday, March 14, 2018 13:20 - CONCLUSION: 1. Faint increased T2 and inversion recovery signal posterior to the T4-5 disc interspace and T7 vertebral bodies possibly representing old demyelinating plaques. 2. Otherwise , no active disease. No abnormal enhancement. Spinal canal is patent throughout Duong Cope MD Lumbar Spine MRI 03/14/181126 Signed Impressions: Service Date/Time: Wednesday, March 14, 2018 13:20 - CONCLUSION: Negative exam. Duong Cope MD Cervical Spine MRI 03/14/181126 Signed Impressions: Service Date/Time: Wednesday, March 14, 2018 13:20 - CONCLUSION: 1. Old demyelinating plaque posteriorly in the right side of the cord at C3-4. 2. Active demyelinating plaque centrally in the cord at C4-5. 3. Spinal canal and neural foramina are patent throughout without cord or nerve root compromise Duong Cope MD Chest CT 03/14/18 0000 Signed Impressions: Service Date/Time: Wednesday, March 14, 2018 16:52 - CONCLUSION: No acute findings in the chest Pablo Johnson MD Abdomen/Pelvis CT 03/14/18 0000 Signed Impressions: Service Date/Time: Wednesday, March 14, 2018 16:52 - CONCLUSION: No acute CT findings in the abdomen or pelvis. Pablo Johnson MD Head CT 03/13/18 0000 Signed Impressions: Service Date/Time: Tuesday, March 13, 2018 16:44 - CONCLUSION: 1. 1.8 x 1.3 cm hypodense region in the right frontal high convexity subcortical white matter without evidence for significant mass effect. Differential considerations include demyelinating process such as multiple sclerosis versus focal infarction or less likely mass. Nilton Dobbs MD Cervical Spine CT 03/13/18 0000 Signed Impressions: Service Date/Time: Tuesday, March 13, 2018 16:44 - CONCLUSION: 1. Unremarkable CT examination of the cervical spine. Patent bony central canal and neural foramina. Nilton Dobbs MD Objective Remarks GENERAL: No acute distress. HEENT: Normocephalic, pupils equal. Nonicteric sclera. CARDIOVASCULAR: Regular rate and rhythm RESPIRATORY: Nonlabored. Clear, no wheezing. GASTROINTESTINAL: Abdomen soft, non-tender, nondistended. BS normal. MUSCULOSKELETAL: Extremities without clubbing, cyanosis, or edema. No obvious deformities. NEUROLOGICAL: Awake, alert and oriented x4. RUE/RLE numbness/tingling, no motor weakness. Moving both upper and lower extremities well. A/P Problem List: (1) Brain lesion ICD Code: G93.9 - Disorder of brain, unspecified Status: Acute Assessment and Plan 1. Brain Lesion: per history acute onset of RUE/RLE numbness/tingling x1 day, no slurred speech, weakness nor facial droop. CT Head w/ 1.8 x 1.3 cm right frontal subcortical lesion, possibly MS versus stroke versus mass. Neurology and neurosurgery consulted. MRI of the T-spine showed spots and T2, T4-5 T7, C3-4 C4-5 active lesions ID consulted to rule out brain abscess. Doubt and it is highly unlikely that the lesion is an abscess. 03/16 as per normal radiologist either malignancy or MS. Brain biopsy recommended. LP done today. Shows lymphocytosis. Other CSF tests pending. As needed HIV 1 and 2 antibody are nonreactive. Follow-up H influenza, Neisseria meningitides, group B strep antigen, herpes simplex virus 1 and 2 DNA PCR. 03/17 repeat brain MRI does not show any specific change, minimal chronic appearing white matter foci. There is no significant change in a 2 rim enhancing masses of the right parietal lobe white matter. Discussed the case with Dr. Zamarripa from neurology who wants to start the patient on IV Solu- Medrol 1 g daily, Protonix. 2. DVT Prophylaxis: SCD/Teds Discharge Planning Continue to monitor on the medical floor. Patient started on IV Solu-Medrol. Vicente Lacey MD March 17, 2018 17:22
[2018-03-17] MEDS: CHLORHEXIDINE GLUCONATE 4% SOLN 120 ML BTL TOP SCH (21:00)
[2018-03-18] VITALS (7 sets, daily range): BP systolic 125–141; BP diastolic 65–80; PULSE 55–70; RESP 16–19; TEMP 97–99.3; O2SAT 98–100
[2018-03-18] MEDS: SODIUM CHLOR 0.9% 1000 ML INJ 1,000 ML IV SCH ×2 (03:02→19:01)
[2018-03-18] MEDS: SODIUM CHLORIDE 0.9% FLUSH 10 ML FLUSH IV FLUSH SCH ×2 (09:00→21:00)
[2018-03-18] MEDS: DOCUSATE SODIUM 50 MG/SENNA 8.6 MG TAB PO SCH ×2 (09:00→21:00)
[2018-03-18] MEDS: ACETAMINOPHEN/HYDROcodone 325 MG/5 MG TAB PO PRN (10:06)
--- NOTE | 2018-03-18 10:46 | HHI.PR ---
Subjective Remarks some lbp and pain cown back of ble today Objective Vital Signs Date Time Temp Pulse Resp B/P (MAP) Pulse Ox O2 Delivery O2 Flow Rate FiO2 03/18/18 08:00 98.4 55 19 141/74 (96) 99 03/18/18 05:30 98.3 64 19 125/65 (85) 100 03/18/18 00:30 98.7 69 16 130/80 (97) 100 03/18/18 00:00 97.0 70 16 130/77 (94) 99 03/17/18 23:59 78 03/17/18 16:00 98.2 69 18 120/71 (87) 100 03/17/18 12:00 98.7 78 18 121/68 (85) 98 I/O 03/17/18 03/17/18 03/17/18 03/18/18 03/18/18 03/18/18 06:59 14:59 22:59 06:59 14:59 22:59 Intake Total 966 ml 1000 ml 1050 ml 120 ml Balance 966 ml 1000 ml 1050 ml 120 ml Intake Oral 1000 ml 1050 ml 120 ml IV Total 966 ml # Voids 9 4 # Bowel Movements 1 0 Result Diagram: 03/16/18 0947 03/16/18 0652 Objective Remarks awake alert nl speechno drift vff face sym nad nl gaitmcan stand on toes sens intact low back nlto palp Assessment and Plan Assessment and Plan imp lab neg no new co mri c spine cord at c 5 enhances and may have thoracic spot also ct abd and chest neg id consulted neg could be atypical ms nusu cleared lp ordersin i will dw sg bx options 03/17/18 feels and looks well csf 70 lymphocytes nl prot and gluc tests pend i dw dr ogden instead of bx will see how brain lesion evolves/or if no changes and if growing can bx then or if recedes then will not need bx i am leaning towards ms with cord abn recheck brain mri today and if stable rx steroids 03/18/18 stable mri yest no change from 03/13-03/17/18 plan 3 day solumedrol cytology neg cx neg ms pend recheck mri wednesday could dc in am after her steroid dose and get mri c or TL wednesday early am w and w/o to compare and she will call me for result ms vs glioma? vs both? Lloyd Zamarripa MD March 18, 2018 10:46
[2018-03-18] MEDS: PANTOPRAZOLE SOD 40 MG DELAYED RELEASE TAB PO SCH (15:00)
[2018-03-18] MEDS: ACETAMINOPHEN/HYDROcodone 325 MG/10 MG TAB PO PRN ×2 (15:11→22:41)
[2018-03-18] MEDS: methylPREDNISolone SO SUCC INJ 1,000 MG in DEXTROSE 5% IN WATER INJ 250 ML IV SCH ×2 (15:12)
--- NOTE | 2018-03-18 16:20 | HHI.PR ---
Subjective Remarks Denies headache, dizziness. Planes of low back pain. Denies fevers or chills. Patient with stable vital signs. Objective Vitals Vital Signs Date Time Temp Pulse Resp B/P (MAP) Pulse Ox O2 Delivery O2 Flow Rate FiO2 03/18/18 12:00 99.3 59 19 127/67 (87) 98 03/18/18 08:00 98.4 55 19 141/74 (96) 99 03/18/18 05:30 98.3 64 19 125/65 (85) 100 03/18/18 00:30 98.7 69 16 130/80 (97) 100 03/18/18 00:00 97.0 70 16 130/77 (94) 99 03/17/18 23:59 78 I/O 03/17/18 03/17/18 03/17/18 03/18/18 03/18/18 03/18/18 07:00 15:00 23:00 07:00 15:00 23:00 Intake Total 966 ml 1000 ml 1050 ml 120 ml Balance 966 ml 1000 ml 1050 ml 120 ml Intake Oral 1000 ml 1050 ml 120 ml IV Total 966 ml # Voids 9 4 # Bowel Movements 1 0 Result Diagram: 03/16/18 0947 03/16/18 0652 Imaging Last Impressions Brain MRI 03/17/18 0000 Signed Impressions: CONCLUSION: 1. No significant change, minimal chronic appearing white matter foci, nonspec ific. 2. No significant change 2 rim-enhancing masses of the right parietal lobe whi te matter. Lumbar Puncture Fluoroscopy 03/16/18 0000 Signed Impressions: CONCLUSION: 1. Uncomplicated fluoroscopically guided lumbar puncture. Thoracic Spine MRI 03/14/181126 Signed Impressions: Service Date/Time: Wednesday, March 14, 2018 13:20 - CONCLUSION: 1. Faint increased T2 and inversion recovery signal posterior to the T4-5 disc interspace and T7 vertebral bodies possibly representing old demyelinating plaques. 2. Otherwise , no active disease. No abnormal enhancement. Spinal canal is patent throughout Duong Cope MD Lumbar Spine MRI 03/14/187 Signed Impressions: Service Date/Time: Wednesday, March 14, 2018 13:20 - CONCLUSION: Negative exam. Duong Cope MD Cervical Spine MRI 03/14/181126 Signed Impressions: Service Date/Time: Wednesday, March 14, 2018 13:20 - CONCLUSION: 1. Old demyelinating plaque posteriorly in the right side of the cord at C3-4. 2. Active demyelinating plaque centrally in the cord at C4-5. 3. Spinal canal and neural foramina are patent throughout without cord or nerve root compromise Duong Cope MD Chest CT 03/14/18 0000 Signed Impressions: Service Date/Time: Wednesday, March 14, 2018 16:52 - CONCLUSION: No acute findings in the chest Pablo Johnson MD Abdomen/Pelvis CT 03/14/18 0000 Signed Impressions: Service Date/Time: Wednesday, March 14, 2018 16:52 - CONCLUSION: No acute CT findings in the abdomen or pelvis. Pablo Johnson MD Head CT 03/13/18 0000 Signed Impressions: Service Date/Time: Tuesday, March 13, 2018 16:44 - CONCLUSION: 1. 1.8 x 1.3 cm hypodense region in the right frontal high convexity subcortical white matter without evidence for significant mass effect. Differential considerations include demyelinating process such as multiple sclerosis versus focal infarction or less likely mass. Nilton Dobbs MD Cervical Spine CT 03/13/18 0000 Signed Impressions: Service Date/Time: Tuesday, March 13, 2018 16:44 - CONCLUSION: 1. Unremarkable CT examination of the cervical spine. Patent bony central canal and neural foramina. Nilton Dobbs MD Objective Remarks GENERAL: No acute distress. HEENT: Normocephalic, pupils equal. Nonicteric sclera. CARDIOVASCULAR: Regular rate and rhythm RESPIRATORY: Nonlabored. Clear, no wheezing. GASTROINTESTINAL: Abdomen soft, non-tender, nondistended. BS normal. MUSCULOSKELETAL: Extremities without clubbing, cyanosis, or edema. No obvious deformities. NEUROLOGICAL: Awake, alert and oriented x4. RUE/RLE numbness/tingling, no motor weakness. Moving both upper and lower extremities well. A/P Problem List: (1) Brain lesion ICD Code: G93.9 - Disorder of brain, unspecified Status: Acute Assessment and Plan 1. Brain Lesion: per history acute onset of RUE/RLE numbness/tingling x1 day, no slurred speech, weakness nor facial droop. CT Head w/ 1.8 x 1.3 cm right frontal subcortical lesion, possibly MS versus stroke versus mass. Neurology and neurosurgery consulted. MRI of the T-spine showed spots and T2, T4-5 T7, C3-4 C4-5 active lesions ID consulted to rule out brain abscess. Doubt and it is highly unlikely that the lesion is an abscess. 03/16 as per normal radiologist either malignancy or MS. Brain biopsy recommended. LP done today. Shows lymphocytosis. Other CSF tests pending. As needed HIV 1 and 2 antibody are nonreactive. Follow-up H influenza, Neisseria meningitides, group B strep antigen, herpes simplex virus 1 and 2 DNA PCR. 03/17 repeat brain MRI does not show any specific change, minimal chronic appearing white matter foci. There is no significant change in a 2 rim enhancing masses of the right parietal lobe white matter. Discussed the case with Dr. Zamarripa from neurology who wants to start the patient on IV Solu- Medrol 1 g daily, Protonix. 03/18 MRI of obtained yesterday no change from 03/13. As per neurology plan is 3 days of Solu-Medrol. Cytology negative, culture negative. MS pending. As per neurology recommendations the patient can be discharged in a.m. after her steroid dose and get MRI as an outpatient. 2. DVT Prophylaxis: SCD/Teds Discharge Planning Discharge in a.m. after steroid dose. The patient will need a repeat MRI with and without contrast on Wednesday. Vicente Lacey MD March 18, 2018 16:20
[2018-03-18 17:53] LABS: HAEMOPHILUS FLU AG TYPE B Not Detected (Not Detected)
[2018-03-18 23:51] LABS: CSF CRYPTOCOCCUS ANTIGEN NOT DETECTED (NEGATIVE)
[2018-03-19] VITALS: BP 130/70; PULSE 53; PULSE 65; RESP 16; TEMP 98; O2SAT 99
[2018-03-19] MEDS: SODIUM CHLOR 0.9% 1000 ML INJ 1,000 ML IV SCH (04:40)
[2018-03-19 08:27] VITALS: BP 126/64; PULSE 55; RESP 18; TEMP 98.4; O2SAT 97
[2018-03-19] MEDS: ACETAMINOPHEN/HYDROcodone 325 MG/5 MG TAB PO PRN (08:54)
[2018-03-19] MEDS: DOCUSATE SODIUM 50 MG/SENNA 8.6 MG TAB PO SCH (08:55)
[2018-03-19] MEDS: SODIUM CHLORIDE 0.9% FLUSH 10 ML FLUSH IV FLUSH SCH (08:56)
[2018-03-19 09:15] LABS: CSF CRYPTOCOCCUS AG CONF ND (NOT DETECTD)
--- NOTE | 2018-03-19 09:53 | HHI.PR ---
Subjective Remarks some lbp and pain cown back of ble today better but still some occ dizzy standing Objective Vital Signs Date Time Temp Pulse Resp B/P (MAP) Pulse Ox O2 Delivery O2 Flow Rate FiO2 03/19/18 08:27 98.4 55 18 126/64 (84) 97 03/19/18 00:00 98.0 65 16 130/70 (90) 99 03/19/18 00:00 53 03/18/18 23:53 18 03/18/18 20:00 98.3 65 16 130/72 (91) 99 03/18/18 20:00 65 03/18/18 16:00 98.8 58 19 126/73 (90) 98 03/18/18 12:00 99.3 59 19 127/67 (87) 98 I/O 03/18/18 03/18/18 03/18/18 03/19/18 03/19/18 03/19/18 07:00 15:00 23:00 07:00 15:00 23:00 Intake Total 1050 ml 120 ml 1260 ml Output Total 600 ml Balance 1050 ml 120 ml 660 ml Intake Oral 1050 ml 120 ml 1260 ml Output Urine Total 600 ml # Voids 4 # Bowel Movements 0 Result Diagram: 03/16/18 0947 03/16/18 0652 Objective Remarks awake alert nl speechno drift vff face sym nad no lhp nl Assessment and Plan Assessment and Plan imp lab neg no new co mri c spine cord at c 5 enhances and may have thoracic spot also ct abd and chest neg id consulted neg could be atypical ms nusu cleared lp ordersin i will dw sg bx options 03/17/18 feels and looks well csf 70 lymphocytes nl prot and gluc tests pend i dw dr ogden instead of bx will see how brain lesion evolves/or if no changes and if growing can bx then or if recedes then will not need bx i am leaning towards ms with cord abn recheck brain mri today and if stable rx steroids 03/18/18 stable mri yest no change from 03/13-03/17/18 plan 3 day solumedrol cytology neg cx neg ms pend recheck mri wednesday could dc in am after her steroid dose and get mri [facility] or TL wednesday early am w and w/o to compare and she will call me for result ms vs glioma? vs both? 03/19/18 stable i sam kidd few tumoprmarkers ordered check stand bp fu mri wednesday and if not better could do bx then Lloyd Zamarripa MD March 19, 2018 09:53
[2018-03-19] MEDS: PANTOPRAZOLE SOD 40 MG DELAYED RELEASE TAB PO SCH (15:05)
[2018-03-19] MEDS: methylPREDNISolone SO SUCC INJ 1,000 MG in DEXTROSE 5% IN WATER INJ 250 ML IV SCH ×2 (15:05)
[2018-03-19] MEDS: ACETAMINOPHEN/HYDROcodone 325 MG/10 MG TAB PO PRN (15:15)
--- NOTE | 2018-03-19 17:10 | HHI.DS ---
Discharge Summary Admission Date March 13, 2018 at 18:30 Discharge Date: March 19, 2018 Admitting Diagnosis intracranial lesion (1) Brain lesion ICD Code: G93.9 - Disorder of brain, unspecified Status: Acute Procedures No Brief History - From Admission This is a 38-year-old female with no significant PMH who presented to the ER with complaints of right arm and right leg numbness and tingling starting last night. States she noted numbness/tingling in her fingers of her right hand last night, today progressed to numbness/tingling of entire arm and RLE. No motor weakness, no slurred speech, no facial droop. Denies h/o similar symptoms. On arrival, BP 123/83, HR 87, O2 sat 100% on RA, Afebrile. CBC unremarkable. Chemistry unremarkable. INR 1.0. UA negative for UTI. CT Head with 1.8 x 1.3 cm hypodense region right frontal subcortical white matter, no mass-effect, possible MS versus infarct or mass. Dr. Alatorre consulted, plan for MRI w/ possible LP depending on results. Pt w/ no other complaints at this time. CBC/BMP: 03/16/18 0947 03/16/18 0652 Significant Findings Laboratory Tests Test 03/19/18 10:30 Imaging Last Impressions Brain MRI 03/17/18 0000 Signed Impressions: CONCLUSION: 1. No significant change, minimal chronic appearing white matter foci, nonspec ific. 2. No significant change 2 rim-enhancing masses of the right parietal lobe whi te matter. Lumbar Puncture Fluoroscopy 03/16/18 0000 Signed Impressions: CONCLUSION: 1. Uncomplicated fluoroscopically guided lumbar puncture. Thoracic Spine MRI 03/14/18 1127 Signed Impressions: Service Date/Time: Wednesday, March 14, 2018 13:20 - CONCLUSION: 1. Faint increased T2 and inversion recovery signal posterior to the T4-5 disc interspace and T7 vertebral bodies possibly representing old demyelinating plaques. 2. Otherwise , no active disease. No abnormal enhancement. Spinal canal is patent throughout Duong Cope MD Lumbar Spine MRI 03/14/18 1127 Signed Impressions: Service Date/Time: Wednesday, March 14, 2018 13:20 - CONCLUSION: Negative exam. Duong Cope MD Cervical Spine MRI 03/14/187 Signed Impressions: Service Date/Time: Wednesday, March 14, 2018 13:20 - CONCLUSION: 1. Old demyelinating plaque posteriorly in the right side of the cord at C3-4. 2. Active demyelinating plaque centrally in the cord at C4-5. 3. Spinal canal and neural foramina are patent throughout without cord or nerve root compromise Duong Cope MD Chest CT 03/14/18 0000 Signed Impressions: Service Date/Time: Wednesday, March 14, 2018 16:52 - CONCLUSION: No acute findings in the chest Pablo Johnson MD Abdomen/Pelvis CT 03/14/18 0000 Signed Impressions: Service Date/Time: Wednesday, March 14, 2018 16:52 - CONCLUSION: No acute CT findings in the abdomen or pelvis. Pablo Johnson MD Head CT 03/13/18 Signed Impressions: Service Date/Time: Tuesday, March 13, 2018 16:44 - CONCLUSION: 1. 1.8 x 1.3 cm hypodense region in the right frontal high convexity subcortical white matter without evidence for significant mass effect. Differential considerations include demyelinating process such as multiple sclerosis versus focal infarction or less likely mass. Nilton Dobbs MD Cervical Spine CT 03/13/18 0000 Signed Impressions: Service Date/Time: Tuesday, March 13, 2018 16:44 - CONCLUSION: 1. Unremarkable CT examination of the cervical spine. Patent bony central canal and neural foramina. Nilton Dobbs MD PE at Discharge Not in distress, well-nourished, looks stated age Normal rate and regular rhythm, no murmurs gallops or rubs appreciated. Clear to auscultation and symmetric bilaterally, normal respiratory effort. Normal bowel sounds, soft, non-tender, nondistended, no guarding. Extremities without clubbing, cyanosis, or edema. No rash of generalized distribution. Skin is warm and dry. AAO x3, no cranial nerve deficits, moves all 4 extremities, no focal neurologic deficits, no upper extremity weakness. No sensory deficits. Breast exam is unremarkable, no axillary lymphadenopathy. Pt update on day of discharge No overnight events, will receive her last course of steroids today. Discussed with neurology, clear for discharge, MRI on Wednesday. Discussed with case management. Patient denies any breast pain. Had mammograms years back, allegedly normal. Hospital Course This is a 42-year-old female presenting with right upper extremity acute onset numbness and tingling with no other focal deficits. CT Head w/ 1.8 x 1.3 cm right frontal subcortical lesion, possibly MS versus stroke versus mass. Neurology and neurosurgery consulted. MRI of the T-spine showed spots and T2, T4-5 T7, C3-4 C4-5 active lesions. ID consulted to rule out brain abscess. Doubt and it is highly unlikely that the lesion is an abscess. Other possibilities are multiple sclerosis versus metastatic disease. LP was done, unremarkable, workup negative so far. Repeat imaging did not show any significant change. Patient was started on Solu- Medrol for 3 days by neurology. There is also concern for metastatic disease, breast exam is unremarkable. Per Dr. Zamarripa, may discharge patient, repeat MRI on Wednesday, further workup as outpatient, may need biopsy as outpatient. Pt Condition on Discharge: Good Discharge Disposition: Discharge Home Discharge Time: > 30 minutes Discharge Instructions DIET: Follow Instructions for: As Tolerated, No Restrictions Activities you can perform: Regular-No Restrictions Continued Medications: Albuterol 18 GM Inh (Ventolin Hfa 18 GM Inh) 90 Mcg/Act Aer 2 PUFF INH Q4-6H PRN for COUGH, #1 INHALER 0 Refills Benzonatate (Tessalon Perles) 100 Mg Cap 200 MG PO Q8HR PRN for COUGH, #15 CAP 0 Refills Discontinued Medications: Ciprofloxacin (Ciprofloxacin) 500 Mg Tab 500 MG PO BID for Infection for 5 Days, #10 TAB 0 Refills Melody Ramirez MD March 19, 2018 17:10
== END 2018-03-19 17:16 | disposition home or self-care (01) | DRG 70 ==
LOC: NEPE 14:46 → NEDH 18:30 → N05B 20:50
PROVIDERS: ADMIT Hospitalist; ATTEND Hospitalist
DX: G93.9 Disorder of brain, unspecified (principal); G93.6 Cerebral edema; D72.820 Lymphocytosis (symptomatic); R20.0 Anesthesia of skin; R20.2 Paresthesia of skin; Z80.9 Family history of malignant neoplasm, unspecified; Z88.1 Allergy status to other antibiotic agents
CPT/HCPCS: 62270; 70450; 70553; 71260; 72125; 72148; 72156; 72157; 74177; 76937; 77003; 80048; 80053; 80307; 81001; 82040; 82042; 82607; 82784; 82945; 83615; 83873; 83916; 83921; 84157; 84207; 84425; 84439; 84443; 84702; 84703; 85025; 85027; 85610; 85652; 85730; 86038; 86140; 86403; 86592; 86618; 86703; 87015; 87070; 87102; 87116; 87205; 87206; 87529; 88108; 89051; 93005; 96360; A9579; J2930; J7030; J7060; Q9963; Q9967

== ENCOUNTER 2018-07-03 21:35 | Observation (INO) ==
[2018-07-03 23:22] LABS: Baso # (Auto) 0.1 th/mm3 (0.0-0.2); Baso % (Auto) 1.2 % (0.0-2.0); Eos # (Auto) 0.3 th/mm3 (0.0-0.4); Eos % (Auto) 5.8 % (0.0-4.0); Hematocrit 34.2 % (35.0-46.0); Hemoglobin 11.5 gm/dL (11.6-15.3); Lymph % (Auto) 41.6 % (9.0-44.0); Mean Corpuscular HGB Conc 33.5 % (32.0-36.0); Mean Corpuscular Hemoglobin 28.8 pg (27.0-34.0); Mean Corpuscular Volume 85.8 fL (80.0-100.0); Mean Platelet Volume 8.6 fL (7.0-11.0); Mono # (Auto) 0.5 th/mm3 (0.0-0.9); Neut % (Auto) 41.4 % (16.0-70.0); Platelet Count 345 th/mm3 (150-450); Red Blood Count 3.99 mil/mm3 (4.00-5.30); Red Cell Distribution Width 15.7 % (11.6-17.2); White Blood Count 4.9 th/mm3 (4.0-11.0)
--- NOTE | 2018-07-03 23:34 | XR ---
EXAM DATE: 07/03/2018 11:17 PM EDT AGE/SEX: 42 years / Female INDICATIONS: Chest pain. CLINICAL DATA: This is the patient's initial encounter. Patient reports that signs and symptoms have been present for 1 day and indicates a pain score of 7/10. MEDICAL/SURGICAL HISTORY: None. None. COMPARISON: No prior exams available for comparison. FINDINGS: A single AP view of the chest demonstrates the lungs to be symmetrically aerated without evidence of mass, infiltrate or effusion. The cardiomediastinal contours are unremarkable. Osseous structures a re intact. CONCLUSION: No active disease. Electronically signed by: Robert Negron MD 07/03/2018 11:33 PM EDT
[2018-07-03 23:38] LABS: Bilirubin,Urine Negative (Negative); Clarity,Urine Clear (Clear); Color,Urine Yellow (Yellw/Straw); Glucose,Urine (UA) Negative (Negative); Leukocyte Esterase,Urine Small (Negative); Mucus,Urine Few /lpf (Occasional); Nitrite,Urine Negative (Negative); Specific Gravity,Urine 1.008 (1.002-1.035); Squamous Epithelial Cell,Urine 2 /hpf (0-5)
[2018-07-03 23:39] LABS: Albumin 3.2 g/dL (3.4-5.0); Anion Gap 7 meq/L (5-15); Aspartate Aminotransferase 15 U/L (15-37); Blood Urea Nitrogen 8 mg/dL (7-18); Carbon Dioxide 27.3 meq/L (21.0-32.0); Chloride 109 meq/L (98-107); Glomerular Filtration Rate Greater Than 89 mL/min (>89); Glucose,Random 109 mg/dL (74-106); Magnesium 1.9 mg/dL (1.5-2.5); Potassium 3.3 meq/L (3.5-5.1); Sodium 143 meq/L (136-145)
[2018-07-03 23:44] LABS: Alanine Aminotransferase 16 U/L (10-53); Alkaline Phosphatase 63 U/L (45-117); Creatine Kinase 136 U/L (26-192); Total Protein 7.8 g/dL (6.4-8.2)
[2018-07-04] MEDS ORDERED: Ketorolac Inj 30 MG/ML (IVP) Vial IV.PUSH ONE (01:12)
--- NOTE | 2018-07-04 03:13 | ED ---
HPI General Chief Complaint: Chest Pain Stated Complaint: pain chest/left arm Time Seen by Provider: 07/03/18 22:41 History of Present Illness HPI narrative: Patient is a 42-year-old female presents the emergency department with chief complaint of chest pain. She states she has had pain for several days. She has been evaluated for this in the past. Pain is described as a pressure pain. She does describe some radiation to her left arm. Again she has had prior episodes and has been evaluated however the testing she describes is more for neurological reasons and not cardiac. She describes getting a lumbar puncture and an MRI of her brain. Patient has no risk factors for cardiovascular disease but has had recurrent symptoms and it has not had a proper medical evaluation. Complete Quality Measures for STEMI Alert Patients Related Data Home Medications Medication Instructions Recorded Confirmed No Known Home Medications 07/03/18 07/04/18 Allergies Allergy/AdvReac Type Severity Reaction Status Date / Time amoxicillin Allergy Severe swollem Verified 07/03/18 21:53 clavulanic acid AdvReac Severe swollen Verified 07/03/18 21:53 Review of Systems ROS: all other systems reviewed are negative [facility] Medical History Medical History delivery delivered (Acute) Patient denies medical problems (Acute) Social History Social History Substance History: No History of Abuse Second Hand Smoke Exposure: No Smoking Status: Never smoker How Often Do You Have a Drink Containing Alcohol: Monthly or less Recent Travel in [facility] within the Last 8 Weeks: No Immunization History Tetanus Immunization: <5 Years Tetanus Immunization Year if Known: 2017 Hx Influenza Vaccine This Season: No Exam Narrative Exam Narrative: GENERAL: 42-year-old female in mild distress secondary to pain SKIN: Focused skin assessment warm/dry. HEAD: Atraumatic. Normocephalic. EYES: Pupils equal and round. No scleral icterus. No injection or drainage. ENT: No nasal bleeding or discharge. Mucous membranes pink and moist. NECK: Trachea midline. No JVD. CARDIOVASCULAR: Regular rate and rhythm. No murmur appreciated. RESPIRATORY: No accessory muscle use. Clear to auscultation. Breath sounds equal bilaterally. GASTROINTESTINAL: Abdomen soft, non-tender, nondistended. Hepatic and splenic margins not palpable. MUSCULOSKELETAL: No obvious deformities. No clubbing. No cyanosis. No edema. NEUROLOGICAL: Awake and alert. No obvious cranial nerve deficits. Motor grossly within normal limits. Normal speech. PSYCHIATRIC: Appropriate mood and affect; insight and judgment normal. Course Initial Documented Vital Signs Temperature 98.9 F 07/03/18 21:53 Pulse Rate 73 07/03/18 21:53 Respiratory Rate 16 07/03/18 21:53 Blood Pressure 139/79 07/03/18 21:53 Pulse Oximetry 100 07/03/18 21:53 Last Documented Vital Signs Temperature 98.9 F 07/03/18 21:53 Pulse Rate 68 07/04/18 03:30 Respiratory Rate 17 07/04/18 03:30 Blood Pressure 120/64 07/04/18 03:30 Pulse Oximetry 100 07/04/18 03:30 Medical Decision Making MDM Narrative Medical decision making narrative: 42-year-old female seen and evaluated in the emergency department. Initial troponin and other laboratory studies were unremarkable. EKG revealed a normal sinus rhythm at a rate of 64. There is no axis deviation normal intervals. There is no ST segment elevation or depression to indicate myocardial ischemia or myocardial injury. Patient will be admitted to the chest pain center for further evaluation and treatment. Medical Screen Exam Complete: Yes Emergency Medical Condition: Yes Lab Data Result diagrams: 07/03/18 22:55 07/03/18 22:55 POC Results POC Urine Results Negative Lab Results 07/03/18 07/03/18 07/03/18 Range/Units 22:55 22:55 23:10 WBC 4.9 (4.0-11.0) th/mm3 RBC 3.99 L (4.00-5.30) mil/mm3 Hgb 11.5 L (11.6-15.3) gm/dL Hct 34.2 L (35.0-46.0) % MCV 85.8 (80.0-100.0) fL MCH 28.8 (27.0-34.0) pg MCHC 33.5 (32.0-36.0) % RDW 15.7 (11.6-17.2) % Plt Count 345 (150-450) th/mm3 MPV 8.6 (7.0-11.0) fL Neut % (Auto) 41.4 (16.0-70.0) % Lymph % (Auto) 41.6 (9.0-44.0) % [place] % (Auto) 10.0 H (0.0-8.0) % Eos % (Auto) 5.8 H (0.0-4.0) % Baso % (Auto) 1.2 (0.0-2.0) % Neut # (Auto) 2.0 (1.8-7.7) th/mm3 Lymph # (Auto) 2.0 (1.0-4.8) th/mm3 [place] # (Auto) 0.5 (0.0-0.9) th/mm3 Eos # (Auto) 0.3 (0.0-0.4) th/mm3 Baso # (Auto) 0.1 (0.0-0.2) th/mm3 WBC Differential . Differential Comment Auto diff final Sodium 143 (136-145) meq/L Potassium 3.3 L (3.5-5.1) meq/L Chloride 109 H (98-107) meq/L Carbon Dioxide 27.3 (21.0-32.0) meq/L Anion Gap 7 (5-15) meq/L BUN 8 (7-18) mg/dL Creatinine 0.76 (0.50-1.00) mg/dL Estimated GFR Greater than 89 (>89) mL/min Random Glucose 109 H (74-106) mg/dL Calcium 8.0 L (8.5-10.1) mg/dL Magnesium 1.9 (1.5-2.5) mg/dL Total Bilirubin 0.3 (0.2-1.0) mg/dL AST 15 (15-37) U/L ALT 16 (10-53) U/L Alkaline Phosphatase 63 (45-117) U/L Total Creatine Kinase 136 (26-192) U/L Troponin I Less than 0.02 L (0.02-0.05) ng/mL Total Protein 7.8 (6.4-8.2) g/dL Albumin 3.2 L (3.4-5.0) g/dL Urine Color Yellow (Yellw/Straw) Urine Clarity Clear (Clear) Urine pH 6.0 (5.0-8.5) Ur Specific [place] 1.008 (1.002-1.035) Urine Protein Negative (Neg-Trace) mg/dL Urine Glucose (UA) Negative (Negative) mg/dL Urine Ketones Negative (Negative) mg/dL Urine Occult Blood Small H (Negative) Urine Nitrate Negative (Negative) Urine Bilirubin Negative (Negative) Urine Urobilinogen 2.0 H (Less than 2) mg/dL Ur Leukocyte Esterase Small H (Negative) Urine RBC 1 (0-3) /hpf Urine WBC 6 H (0-5) /hpf Ur Squamous Epith Cells 2 (0-5) /hpf Urine Mucus Few H (Occasional) /lpf Ur Microscopic Review Not Reportable 07/04/18 Range/Units 04:10 WBC (4.0-11.0) th/mm3 RBC (4.00-5.30) mil/mm3 Hgb (11.6-15.3) gm/dL Hct (35.0-46.0) % MCV (80.0-100.0) fL MCH (27.0-34.0) pg MCHC (32.0-36.0) % RDW (11.6-17.2) % Plt Count (150-450) th/mm3 MPV (7.0-11.0) fL Neut % (Auto) (16.0-70.0) % Lymph % (Auto) (9.0-44.0) % [place] % (Auto) (0.0-8.0) % Eos % (Auto) (0.0-4.0) % Baso % (Auto) (0.0-2.0) % Neut # (Auto) (1.8-7.7) th/mm3 Lymph # (Auto) (1.0-4.8) th/mm3 [place] # (Auto) (0.0-0.9) th/mm3 Eos # (Auto) (0.0-0.4) th/mm3 Baso # (Auto) (0.0-0.2) th/mm3 WBC Differential Differential Comment Sodium (136-145) meq/L Potassium (3.5-5.1) meq/L Chloride (98-107) meq/L Carbon Dioxide (21.0-32.0) meq/L Anion Gap (5-15) meq/L BUN (7-18) mg/dL Creatinine (0.50-1.00) mg/dL Estimated GFR (>89) mL/min Random Glucose (74-106) mg/dL Calcium (8.5-10.1) mg/dL Magnesium (1.5-2.5) mg/dL Total Bilirubin (0.2-1.0) mg/dL AST (15-37) U/L ALT (10-53) U/L Alkaline Phosphatase (45-117) U/L Total Creatine Kinase 117 (26-192) U/L Troponin I Less than 0.02 L (0.02-0.05) ng/mL Total Protein (6.4-8.2) g/dL Albumin (3.4-5.0) g/dL Urine Color (Yellw/Straw) Urine Clarity (Clear) Urine pH (5.0-8.5) Ur Specific [place] (1.002-1.035) Urine Protein (Neg-Trace) mg/dL Urine Glucose (UA) (Negative) mg/dL Urine Ketones (Negative) mg/dL Urine Occult Blood (Negative) Urine Nitrate (Negative) Urine Bilirubin (Negative) Urine Urobilinogen (Less than 2) mg/dL Ur Leukocyte Esterase (Negative) Urine RBC (0-3) /hpf Urine WBC (0-5) /hpf Ur Squamous Epith Cells (0-5) /hpf Urine Mucus (Occasional) /lpf Ur Microscopic Review Imaging Data Radiologist's impression: Chest X-Ray 07/03/18 22:59 CONCLUSION: No active disease. Discharge Plan Discharge Disposition Patient Disposition: 30 Still Patient Discharge Condition Condition: Good Discharge Details Diagnosis: Chest pain Physicians Team ED Provider: Nahed Thomas Primary Care Provider: UNKNOWN, Rxs /Orders / Referrals /Forms Prescriptions: No Action No Known Home Medications RF: 0 Discharge Instructions Patient Printed Instructions: Chest Pain (ED) Status ED Status: Admitted Observation Patient
[2018-07-04 04:38] LABS: Creatine Kinase 117 U/L (26-192)
[2018-07-04 09:32] LABS: Creatine Kinase 117 U/L (26-192)
--- NOTE | 2018-07-04 09:40 | P.HPCA ---
History of Present Illness Primary Care Physician: UNKNOWN Chief Complaint: Chest pain History of Present Illness: This is a 42-year-old female who presents to ED via private vehicle to be evaluated for chest discomfort. States that she developed a left-sided chest tightness and sharp pain in her left arm with tingling in the fingers. She has had a few episodes since yesterday each lasting a few minutes. Found nothing in particular to bring on the discomfort. She had a little diaphoretic. No shortness of breath or nausea. Denies . Denies her cardiac issues. She has had a workup in the past. Upon reviewing records she had a nonischemic Leo protocol ETT in 2015. 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 There is family history of CAD however, states her sister has had stents in her 30s. Patient is a non-smoker. Denies hypertension, hyperlipidemia, diabetes, and CAD. There is family history of CAD, states that a sister had stents in his 30s. - Diagnosis (1) Chest pain Review of Systems General: Patient denies fevers, chills, and recent travel. HEENT: Patient denies headache, sore throat, difficulty swallowing. Cardiovascular: Has the chest discomfort as mentioned above. Denies sensation of heart beating rapidly or irregularly. No syncope. She was diaphoretic. Respiratory: Denies shortness of breath or inspirational chest discomfort. Denies coughing wheezing or hemoptysis. GI: Patient denies nausea, vomiting, diarrhea, abdominal pain, bloody stools. Musculoskeletal: Patient denies joint pain or edema. Denies calf pain or edema. Neurovascular: Planes of tingling in her left hand. Patient denies weakness in extremities. Denies headache. Endocrine: Denies polyuria and polydipsia. Hematologic: Denies easy bruising. Skin: Denies rash or itching. PMFSH - History History Provided By: Patient - Medical History Medical History: Medical History (Last Updated 07/03/18 @ 21:54 by Claudia Salinas RN) delivery delivered Patient denies medical problems - Tobacco History Second Hand Smoke Exposure: No Smoking Status: Never smoker - Alcohol History How Often Do You Have a Drink Containing Alcohol: Never - Substance Use History Substance History: No History of Abuse - Travel History Recent Travel in the [place] Within the Last 8 Weeks: No Recent Travel Out of the Country Within the Last 8 Weeks: No - Immunization History Tetanus Immunization: <5 Years Tetanus Immunization Year if Known: 2017 Hx Influenza Vaccine This Season: No Medications and Allergies Active Medications: Active Medications Sodium Chloride (Ns Flush) 2 ml IV.FLUSH BID FUNMILAYO Sodium Chloride (Ns Flush) 2 ml IV.FLUSH PRN PRN PRN Reason: FLUSH AFTER USING IV ACCESS Allergies Allergy/AdvReac Type Severity Reaction Status Date / Time amoxicillin Allergy Severe swollem Verified 07/03/18 21:53 clavulanic acid AdvReac Severe swollen Verified 07/03/18 21:53 Home Medications Medication Instructions Recorded Confirmed Type No Known Home Medications 07/03/18 07/04/18 History Exam Vital signs: Vital Signs 07/03/18 21:53 07/03/18 22:23 07/03/18 22:55 Temperature 98.9 F Pulse Rate 73 64 Respiratory Rate 16 17 Blood Pressure 139/79 112/69 Pulse Oximetry 100 100 100 07/03/18 23:02 07/04/18 03:30 07/04/18 07:46 Temperature Pulse Rate 72 68 61 Respiratory Rate 17 Blood Pressure 120/64 Pulse Oximetry 100 100 07/04/18 07:55 Temperature 97.3 F L Pulse Rate 60 Respiratory Rate 14 Blood Pressure 117/73 Pulse Oximetry 100 Intake & Output 07/03/18 07/04/18 07/04/18 18:59 06:59 18:59 Weight 70.307 kg Narrative: GENERAL: This is a well-nourished, well-developed patient, in no apparent distress. Patient speaks in clear complete sentences. Patient is pleasant. HEENT: Head is atraumatic and normocephalic. Neck is supple without lymphadenopathy and trachea is midline. No JVD or carotid bruits. CARDIOVASCULAR: Regular rate and rhythm without murmurs, gallops, or rubs. RESPIRATORY: Clear to auscultation. Breath sounds equal bilaterally. No wheezes , rales, or rhonchi. Chest wall is nontender. No use of accessory muscles. GASTROINTESTINAL: Abdomen is nontender, nondistended. Abdomen soft. No obvious pulsatile mass or bruit. No CVA tenderness. Strong femoral pulses bilaterally. Normal bowel sounds in all quadrants. MUSCULOSKELETAL: Patient is moving upper and lower extremities freely. No calf tenderness or edema, no Homans sign. Strong pulses in upper and lower extremities. NEUROLOGICAL: Patient is alert and oriented. Cranial nerves 2-12 are grossly intact. No focal deficits and speech is clear. SKIN: No rash and turgor is normal. Results 07/03/18 22:55 07/03/18 22:55 Cardiac Enzymes 07/03/18 07/04/18 07/04/18 Range/Units 22:55 04:10 08:45 AST 15 (15-37) U/L Troponin I Less than 0.02 L Less than 0.02 L Less than 0.02 L (0.02-0.05) ng/mL CBC 07/03/18 Range/Units 22:55 WBC 4.9 (4.0-11.0) th/mm3 RBC 3.99 L (4.00-5.30) mil/mm3 Hgb 11.5 L (11.6-15.3) gm/dL Hct 34.2 L (35.0-46.0) % Plt Count 345 (150-450) th/mm3 Neut # (Auto) 2.0 (1.8-7.7) th/mm3 Lymph # (Auto) 2.0 (1.0-4.8) th/mm3 Ashe # (Auto) 0.5 (0.0-0.9) th/mm3 Eos # (Auto) 0.3 (0.0-0.4) th/mm3 Baso # (Auto) 0.1 (0.0-0.2) th/mm3 Comprehensive Metabolic Panel 07/03/18 Range/Units 22:55 Sodium 143 (136-145) meq/L Potassium 3.3 L (3.5-5.1) meq/L Chloride 109 H (98-107) meq/L Carbon Dioxide 27.3 (21.0-32.0) meq/L BUN 8 (7-18) mg/dL Creatinine 0.76 (0.50-1.00) mg/dL Calcium 8.0 L (8.5-10.1) mg/dL AST 15 (15-37) U/L ALT 16 (10-53) U/L Alkaline Phosphatase 63 (45-117) U/L Total Protein 7.8 (6.4-8.2) g/dL Albumin 3.2 L (3.4-5.0) g/dL Intake and Output 07/03/18 07/04/18 07/04/18 22:59 06:59 14:59 Other: Weight 70.307 kg EKG interpretations - EKG EKG shows: sinus rhythm (EKGs are sinus rhythm without significant ST segment depressions or elevations.) Caprini VTE Risk Assessment Caprini VTE Risk Assessment: No/Low Risk (score <= 1) Caprini Risk Assessment Model: Point Value = 1 Point Value = 2 Point Value = 3 Point Value = 5 Age 41-60 Minor surgery BMI > 25 kg/m2 Swollen legs Varicose veins or History of unexplained or recurrent spontaneous Oral contraceptives or hormone replacement Sepsis (< 1 month) Serious lung disease, including pneumonia (< 1 month) Abnormal pulmonary function Acute myocardial infarction Congestive heart failure (< 1 month) History of inflammatory bowel disease Medical patient at bed rest Age 61-74 Arthroscopic surgery Major open surgery (> 45 min) Laparoscopic surgery (> 45 min) Malignancy Confined to bed (> 72 hours) Immobilizing plaster cast Central venous access Age >= 75 History of VTE Family history of VTE Factor V Leiden Prothrombin [id number] Lupus anticoagulant Anticardiolipin antibodies Elevated serum homocysteine Heparin-induced thrombocytopenia Other congenital or acquired thrombophilia Stroke (< 1 month) Elective arthroplasty Hip, pelvis, or leg fracture Acute spinal cord injury (< 1 month) Prophylaxis Regimen: Total Risk Factor Score Risk Level Prophylaxis Regimen 0-1 Low Early ambulation 2 Moderate Order ONE of the following: *Sequential Compression Device (SCD) *Heparin 5000 units SQ BID 3-4 Higher Order ONE of the following medications: *Heparin 5000 units SQ TID *Enoxaparin/Lovenox 40 mg SQ daily (WT < 150 kg, CrCl > 30 mL/min) *Enoxaparin/Lovenox 30 mg SQ daily (WT < 150 kg, CrCl > 10-29 mL/min) *Enoxaparin/Lovenox 30 mg SQ BID (WT < 150 kg, CrCl > 30 mL/min) AND/OR *Sequential Compression Device (SCD) 5 or more Highest Order ONE of the following medications: *Heparin 5000 units SQ TID (Preferred with Epidurals) *Enoxaparin/Lovenox 40 mg SQ daily (WT < 150 kg, CrCl > 30 mL/min) *Enoxaparin/Lovenox 30 mg SQ daily (WT < 150 kg, CrCl > 10-29 mL/min) *Enoxaparin/Lovenox 30 mg SQ BID (WT < 150 kg, CrCl > 30 mL/min) AND *Sequential Compression Device (SCD) Assessment and Plan - Assessment (1) Chest pain Code(s): R07.9 - Chest pain, unspecified Status: Acute - Plan * Chest pain: Patient has had serial cardiac enzymes and EKGs for ruling out purposes. She was seen by Dr. Lloyd Hager of cardiology in the chest pain center and will undergo a Leo protocol ETT. She will be discharged home if stress test is nonischemic with instructions to follow-up with PCP. Return to ED for interval issues. Patient is stable at this time. She is agreeable to this plan. H&P: Quality - VTE Deep Vein Thrombosis/Pulmonary Embolism Present on Admission: No (1) Chest pain Qualifiers: Chest pain type: unspecified Qualified Code(s): R07.9 - Chest pain, unspecified
--- NOTE | 2018-07-04 13:53 | ECG ---
Date Performed: 07/04/2018 Time Performed: 03:31:40 PTAGE: 42 years EKG: SINUS BRADYCARDIA BORDERLINE ECG PREVIOUS TRACING : 07/03/2018 22.13 Since previous tracing, no significant change noted DOCTOR: Lloyd Hager Interpretating Date/Time 07/04/2018 13:53:08
--- NOTE | 2018-07-04 13:53 | ECG ---
Date Performed: 07/04/2018 Time Performed: 06:34:23 PTAGE: 42 years EKG: Sinus rhythm NORMAL ECG PREVIOUS TRACING : 03/13/2018 16.00 Since previous tracing, no significant change noted DOCTOR: Lloyd Hager Interpretating Date/Time 07/04/2018 13:52:12
--- NOTE | 2018-07-04 13:54 | ECG ---
Date Performed: 07/03/2018 Time Performed: 22:13:40 PTAGE: 42 years EKG: Sinus rhythm NORMAL ECG NO PREVIOUS TRACING DOCTOR: Lloyd Hager Interpretating Date/Time 07/04/2018 13:53:50
--- NOTE | 2018-07-04 13:58 | TR ---
Date Performed: 07/04/2018 Time Performed: 10:08:36 DOCTOR: Lloyd Hager DRUG LIST: CLINICAL HISTORY: REASON FOR TEST: REASON FOR ENDING: OBSERVATION: CONCLUSION: SONIYA PROTOCOL. NO CP. TEST STOPPED AFTER EXCEEDING GOAL HR SECONDARY TO SOB AND LE G FATIGUE.Maximum PI=959 % Max HR Achieved=96.0% Maximum PJ=854/70 Total Exercise Time=9:59 COMMENTS: Patient exercised using the Soniya protocol. No electrocardiographic changes were seen to suggest ischemia. Hemodynamic response to exercise was normal. No significant arrhythmia was prese nt.
== END 2018-07-04 11:48 | disposition home or self-care (01) ==
LOC: NEDA 21:35 → NEPC 21:35 → NEPFCDU 07-04 06:26
PROVIDERS: ADMIT Internal Medicine Interventional Cardiology; ATTEND Internal Medicine Interventional Cardiology
DX: R07.9 Chest pain, unspecified; Z82.49 Family history of ischemic heart disease and other diseases of the circulatory system; Z88.0 Allergy status to penicillin; R94.31 Abnormal electrocardiogram [ECG] [EKG]